=== PATIENT | female | born 1955 | race Hispanic/Latino ===

== ENCOUNTER 2022-10-01 14:39 | Emergency (ER) | payer OTHER ==
--- OUTSIDE RECORDS SUMMARY | 2022-10-01 14:46 | XMS REPORT | Continuity of Care Document ---
:[address] [facility] t Address [address] [place]. [address] [place] [id number] Care Team Providers Name Role Phone Burton Mazariegos Primary Care Physician Luana MARINO, Billie Umana Attending Clinician Burton Mazariegos Attending Clinician ANH CARDENAS Attending Clinician Unavailable Anh Cardenas MD Attending Clinician Doctor Unassigned, [place] Attending Clinician Unavailable Keenan Frausto Attending Clinician MACIEL CHO Attending Clinician Unavailable MACIEL CHO Attending Clinician Unavailable Tania Baker Attending Clinician Unavailable Jett Sarmiento DO Attending Clinician Maciel Cho DO Attending Clinician Lab, Adc Fam Pob I Attending Clinician Unavailable Angelina Cary Attending Clinician CITLALLI SWARTZ Attending Clinician Unavailable Michael Lin Attending Clinician RADIOLOGY Attending Clinician Unavailable Omaghomi TINNER HELPER, Omayemi Attending Clinician TRIP, YONATHAN Attending Clinician Unavailable Chato HANSON, Pilar Malcolm Attending Clinician Patricia Nickerson S Attending Clinician Gabriel Mckinnon MD Attending Clinician Yolanda Bianchi MD Attending Clinician Jose MARINO, Ambar Attending Clinician Provider, [facility] Attending Clinician Unavailable Cate TINNER HELPER, Gaudencio Attending Clinician GUADENCIO WRAY Attending Clinician Unavailable LOU DELGADILLO Attending Clinician Unavailable Physician, No Primary or Family Admitting Clinician Unavaillashawn Garcia MD, Ambar Admitting Clinician Payers Payer Name Policy Type Policy Number Effective Date Expiration Date [facility] [id number] 2020 PREFERRED GENERIC 00:00:00 [facility] [id number] 2019 00:00:00 [employer] TRS CARE [id number] 2014 00:00:00 Problems Condition Condition Condition Status Onset Resolution Last Treating Co mments Source Name Details Category Date Date Treatment Clinician Date Acute Acute Disease Active Methodi internal internal 05 [facility] 00:00: Ho spita t of left t of left 00 l knee knee COVID-19 COVID-19 Disease Active 2019-10 Unive rs 2-12 ity of 00:00: [place] [facility] Pneumonia Pneumonia Disease Active 2019-10 Uni vers 2-12 ity of 00:00: [place] 00 [facility] Obesity Obesity Disease Active Univers 2-17 ity of 00:00: [place] [facility] Tinnitus Tinnitus Disease Active Unive rs of right of right 2-17 ity of ear ear 00:00: [place] [facility] Cardiac Cardiac Disease Active Univers murmur murmur 2-17 ity of 00:00: [place] [facility] Diabetes Diabetes Disease Active 2013-10 Overview: Un rosario mellitus mellitus 0-22 Formattin ity of type 2, type 2, 00:00: g of this [place] uncontroll uncontroll 00 note Me dical ed, ed, might be Branch without without different complicati complicati from the ons ons original. 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 ICD10 Diagnosis Term [place] [employer] Pure Pure Disease Active Univers hyperglyce hyperglyce 8-22 it y of ridemia ridemia 00:00: [place] [facility] Allergies, Adverse Reactions, Alerts Allergy Allergy Status Severity Reaction(s) Onset Inactive Treating Comm ents Source Name Type Date Date Clinician Sulfa Propensi Active Rash 2015-10 Univers (Sulfona ty to 2-28 ity of mide adverse 00:00: [place] Antibiot reaction 00 Medica l ics) s Branch SULFA Drug Active Rash 2015-10 Univers (SULFONA Class 2-28 ity of MIDE 00:00: [place] ANTIBIOT 00 Medical ICS) Branch Sulfa Propensi Active Rash 2015-10 Univers (Sulfona ty to 2-28 ity of mide adverse 00:00: [place] Antibiot reaction 00 Medica l ics) s Branch Sulfa Propensi Active Rash 2015-10 Methodi (Sulfona ty to 2-28 st mide adverse 00:00: [facility]ospita Antibiot reaction 00 l ics) s to drug Family History Family Member Diagnosis Comments Start Date Stop Date Source Natural father Diabetes [facility] Natural father Cancer [facility] Natural mother Diabetes [facility] Social History Social Habit Start Date Stop Date Quantity Comments Source Tobacco use and 2022-04-13 2022-04-13 Smokeless [facility] 00:00:00 00:00:00 tobacco non-user Hospital Alcohol intake 2022-04-13 2022-04-13 Lifetime [facility] 00:00:00 00:00:00 non-drinker Hospital (finding) Exposure to 2022-03-28 2022-04-07 Not sure University SARS-CoV-2 (event) 00:00:00 13:11:00 [facility] [place] [facility] Cigarettes smoked 2020-11-20 2020-11-20 Univers ity of current (pack per 00:00:00 00:00:00 [facility] ) - Reported Branch History of tobacco 1980-10-10 Cigarette Smoker University of use 00:00:00 [facility] [place] [facility] Sex Ass[birth year] At [birth year] [facility] 00:[facility]:00 Hospital Smoking Status Start Date Stop Date Source Never smoked tobacco [facility] Former smoker 2020-11-20 00:00:00 2020-11-20 00:00:00 Universi ty [facility] Unknown if ever smoked [facility] Medications Ordered Filled Start Stop Current Ordering Indication Dosage Frequency Signature Comments Components Source Medication Medication Date Date Medication? Clinician (SIG) Name Name meloxicam 2021-10 Yes 15mg Q24H TAKE 1 Method i (MOBIC) 15 0-24 TABLET (15 st mg tablet 00:00: MG TOTAL) Hos yokasta 00 BY MOUTH l DAILY NEEDED (INFLAMMAT ION). meloxicam No 15mg Q24H TAKE 1 Metho di (MOBIC) 15 8-29 10-24 TABLET (15 st mg tablet 00:00: 00:00 MG TOTAL) Ho spita 00 :00 BY MOUTH l DAILY NEEDED (INFLAMMAT ION). meloxicam No 15mg Q24H Take 1 Metho di (MOBIC) 15 7-05 08-29 tablet (15 st mg tablet 00:00: 00:00 mg total) Ho spita 00 :00 by mouth l daily as needed (inflammat ion). ketorolac 2021- No [id number] 30mg U nivers (TORADOL) 04-07 ity of injection 19:30: 18:38 [place] 30 mg 00 :00 [facility] ketorolac 2021- No [id number] 30mg 30 mg, Univers (TORADOL) 04-07 Intramuscu ity of injection 19:30: 18:38 [place], ONCE, [place] 30 mg 00 :00 1 dose, On Medical Wed Branch 04/07/22 at 1430, Routine levothyroxi Yes 88ug Take 88 Uni vers ne 6-29 mcg by ity of (SYNTHROID) 13:22: mouth [place] 88 mcg 45 every Medical tablet morning. Branch levothyroxi Yes 88ug Take 88 Uni vers ne 6-29 mcg by ity of (SYNTHROID) 13:22: mouth [place] 88 mcg 45 every Medical tablet morning. Branch levothyroxi Yes 88ug Take 88 Uni vers ne 6-29 mcg by ity of (SYNTHROID) 13:22: mouth [place] 88 mcg 45 every Medical tablet morning. Branch levothyroxi Yes 88ug Take 88 Uni vers ne 6-29 mcg by ity of (SYNTHROID) 13:22: mouth [place] 88 mcg 45 every Medical tablet morning. Branch hydroCHLORO Yes 25mg Take 25 mg Univers thiazide 25 6-21 by mouth ity of mg tablet 00:00: every [place] 00 morning. Medical Branch hydroCHLORO 2021-0 Yes 25mg Take 25 mg Univers thiazide 25 6-21 by mouth ity of mg tablet 00:00: every [place] 00 morning. Medical Branch hydroCHLORO 2021-0 Yes 25mg Take 25 mg Univers thiazide 25 6-21 by mouth ity of mg tablet 00:00: every [place] 00 morning. Medical Branch hydroCHLORO 2021-0 Yes 25mg Take 25 mg Univers thiazide 25 6-21 by mouth ity of mg tablet 00:00: every [place] 00 morning. [facility] SERTraline 2021-0 Yes 25mg Take 25 mg U nivers 25 mg 5-17 by mouth ity of tablet 00:00: daily. [facility] OZEMPIC Yes INJECT Univers 0.25 mg or 5-17 0.5MG ONCE ity of 0.5 mg(2 00:00: WEEKLY [place] mg/1.5 mL) [facility] ical P[facility]j OUSLY [place] pantoprazol Yes 40mg Take 40 mg Univers e 40 mg EC 5-17 by mouth ity o f tablet 00:00: daily. [place] [facility] SERTraline Yes 25mg Take 25 mg U nivers 25 mg 5-17 by mouth ity of tablet 00:00: daily. [place] [facility] OZEMPIC Yes INJECT Univers 0.25 mg or 5-17 0.5MG ONCE ity of 0.5 mg(2 00:00: WEEKLY [place] mg/1.5 mL) [facility] Med ical PnIj OULY [place] pantoprazol Yes 40mg Take 40 mg Univers e 40 mg EC 5-17 by mouth ity o f tablet 00:00: daily. [place] [facility] SERTraline Yes 25mg Take 25 mg U nivers 25 mg 5-17 by mouth ity of tablet 00:00: daily. [place] [facility] OZEMPIC Yes INJECT Univers 0.25 mg or 5-17 0.5MG ONCE ity of 0.5 mg(2 00:00: WEEKLY [place] mg/1.5 mL) [facility] Yes 40mg Take 40 mg Univers e 40 mg EC 5-17 by mouth ity o f tablet 00:00: daily. [place] [facility] SERTraline Yes 25mg Take 25 mg U nivers 25 mg 5-17 by mouth ity of tablet 00:00: daily. [address] OZEMPIC Yes INJECT Univers 0.25 mg or 5-17 0.5MG ONCE ity of 0.5 mg(2 00:00: WEEKLY [place] mg/1.5 mL) SUBCUTANES Med ical PnIj OUSLY [place] pantoprazol Yes 40mg Take 40 mg Univers e 40 mg EC 5-17 by mouth ity o f tablet 00:00: daily. [address] methocarbam 2020-0 Yes [id number] 750mg Take 1 Univers oL 1-12 tablet by ity of (ROBAXIN-75 00:00: mouth 4 [place] as 0) 750 mg 00 (four) Medical tablet times Branch daily as needed for Pain (scale 7-10). ibuprofen 2020-0 Yes [id number] 600mg Take 1 Univers 600 mg 1-12 tablet by ity of tablet 00:00: mouth [place] 00 every 8 Medical (eight) Branch hours as needed for Pain (scale 4-6). methocarbam 2020-0 Yes [id number] 750mg Take 1 Univers oL 1-12 tablet by ity of (ROBAXIN-75 00:00: mouth 4 [place] as 0) 750 mg 00 (four) Medical tablet times Branch daily as needed for Pain (scale 7-10). ibuprofen 2020-0 Yes [id number] 600mg Take 1 Univers 600 mg 1-12 tablet by ity of tablet 00:00: mouth [place] 00 every 8 Medical (eight) Branch hours as needed for Pain (scale 4-6). methocarbam 2020-0 Yes [id number] 750mg Take 1 Univers oL 1-12 tablet by ity of (ROBAXIN-75 00:00: mouth 4 [place] as 0) 750 mg 00 (four) Medical tablet times Branch daily as needed for Pain (scale 7-10). ibuprofen 2020-0 Yes [id number] 600mg Take 1 Univers 600 mg 1-12 tablet by ity of tablet 00:00: mouth [place] 00 every 8 Medical (eight) Branch hours as needed for Pain (scale 4-6). methocarbam 2020-0 Yes [id number] 750mg Take 1 Univers oL 1-12 tablet by ity of (ROBAXIN-75 00:00: mouth 4 [place] as 0) 750 mg 00 (four) Medical tablet times Branch daily as needed for Pain (scale 7-10). ibuprofen 2020-0 Yes [id number] 600mg Take 1 Univers 600 mg 1-12 tablet by ity of tablet 00:00: mouth [place] 00 every 8 Medical (eight) Branch hours as needed for Pain (scale 4-6). methocarbam 2020-0 Yes [id number] 750mg Take 1 Univers oL 1-12 tablet by ity of (ROBAXIN-75 00:00: mouth 4 [place] as 0) 750 mg 00 (four) Medical tablet times Branch daily as needed for Pain (scale 7-10). ibuprofen 2020-0 Yes [id number] 600mg Take 1 Univers 600 mg 1-12 tablet by ity of tablet 00:00: mouth [place] 00 every 8 Medical (eight) Branch hours as needed for Pain (scale 4-6). methocarbam 2021-0 Yes [id number] 750mg Take 1 Univers oL 1-12 tablet by ity of (ROBAXIN-75 00:00: mouth 4 [place] as 0) 750 mg 00 (four) Medical tablet times Branch daily as needed for Pain (scale 7-10). ibuprofen 202-0 Yes [id number] 600mg Take 1 Univers 600 mg 1-12 tablet by ity of tablet 00:00: mouth [place] 00 every 8 Medical (eight) Branch hours as needed for Pain (scale 4-6). methocarbam 2021-0 Yes [id number] 750mg Take 1 Univers oL 1-12 tablet by ity of (ROBAXIN-75 00:00: mouth 4 [place] as 0) 750 mg 00 (four) Medical tablet times Branch daily as needed for Pain (scale 7-10). ibuprofen 2020-0 Yes [id number] 600mg Take 1 Univers 600 mg 1-12 tablet by ity of tablet 00:00: mouth [place] 00 every 8 Medical (eight) Branch hours as needed for Pain (scale 4-6). methocarbam 2021-0 Yes [id number] 750mg Take 1 Univers oL 1-12 tablet by ity of (ROBAXIN-75 00:00: mouth 4 [place] as 0) 750 mg 00 (four) Medical tablet times Branch daily as needed for Pain (scale 7-10). ibuprofen 2020-0 Yes [id number] 600mg Take 1 Univers 600 mg 1-12 tablet by ity of tablet 00:00: mouth [place] 00 every 8 Medical (eight) Branch hours as needed for Pain (scale 4-6). methocarbam 2021-0 Yes [id number] 750mg Take 1 Univers oL 1-12 tablet by ity of (ROBAXIN-75 00:00: mouth 4 [place] as 0) 750 mg 00 (four) Medical tablet times Branch daily as needed for Pain (scale 7-10). ibuprofen 2021-0 Yes [id number] 600mg Take 1 Univers 600 mg 1-12 tablet by ity of tablet 00:00: mouth [place] 00 every 8 Medical (eight) Branch hours as needed for Pain (scale 4-6). methocarbam 2020-0 Yes [id number] 750mg Take 1 Univers oL 1-12 tablet by ity of (ROBAXIN-75 00:00: mouth 4 [place] as 0) 750 mg 00 (four) Medical tablet times Branch daily as needed for Pain (scale 7-10). ibuprofen 2020-0 Yes [id number] 600mg Take 1 Univers 600 mg 1-12 tablet by ity of tablet 00:00: mouth [place] 00 every 8 Medical (eight) Branch hours as needed for Pain (scale 4-6). methocarbam 2020-0 Yes [id number] 750mg Take 1 Univers oL 1-12 tablet by ity of (ROBAXIN-75 00:00: mouth 4 [place] as 0) 750 mg 00 (four) Medical tablet times Branch daily as needed for Pain (scale 7-10). ibuprofen 2020-0 Yes [id number] 600mg Take 1 Univers 600 mg 1-12 tablet by ity of tablet 00:00: mouth [place] 00 every 8 Medical (eight) Branch hours as needed for Pain (scale 4-6). methocarbam 2020-0 Yes [id number] 750mg Take 1 Univers oL 1-12 tablet by ity of (ROBAXIN-75 00:00: mouth 4 [place] as 0) 750 mg 00 (four) Medical tablet times Branch daily as needed for Pain (scale 7-10). methocarbam 2020-0 Yes [id number] 750mg Take 1 Univers oL 1-12 tablet by ity of (ROBAXIN-75 00:00: mouth 4 [place] as 0) 750 mg 00 (four) Medical tablet times Branch daily as needed for Pain (scale 7-10). methocarbam 202-0 Yes [id number] 750mg Take 1 Univers oL 1-12 tablet by ity of (ROBAXIN-75 00:00: mouth 4 [place] as 0) 750 mg 00 (four) Medical tablet times Branch daily as needed for Pain (scale 7-10). methocarbam 2020-0 Yes [id number] 750mg Take 1 Univers oL 1-12 tablet by ity of (ROBAXIN-75 00:00: mouth 4 [place] as 0) 750 mg 00 (four) Medical tablet times Branch daily as needed for Pain (scale 7-10). ibuprofen 2021- No [id number] 600mg Take 1 Univers 600 mg 10-21- tablet by ity of tablet 00:00: 00:00 mouth [place] 00 :00 every 8 Medical (eight) Branch hours as needed for Pain (scale 4-6). esomeprazol 2019-10 Yes 40mg Take 40 mg Univers e (NEXIUM) 2-17 by mouth ity o f 40 mg 01:03: daily with [place] capsule 49 breakfast. Medica l Branch Insulin 2019-10 Yes 12U inject 12 Unive rs Detemir 2-17 Units ity of (LEVEMIR 01:03: under the [place] FLEXPEN) 49 skin. Medical 100 unit/mL Branch (3 mL) InPn levothyroxi 2019-10 Yes 88ug Take 88 Uni vers ne 2-17 mcg by ity of (SYNTHROID) 01:03: mouth [place] 88 mcg 49 every Medical tablet morning. Branch esomeprazol 2019-10 Yes 40mg Take 40 mg Univers e (NEXIUM) 2-17 by mouth ity o f 40 mg 01:03: daily with [place] capsule 49 breakfast. Medica l Branch Insulin 2019-10 Yes 12U inject 12 Unive rs Detemir 2-17 Units ity of (LEVEMIR 01:03: under the [place] FLEXPEN) 49 skin. Medical 100 unit/mL Branch (3 mL) InPn levothyroxi 2019-10 Yes 88ug Take 88 Uni vers ne 2-17 mcg by ity of (SYNTHROID) 01:03: mouth [place] 88 mcg 49 every Medical tablet morning. Branch esomeprazol 2019-10 Yes 40mg Take 40 mg Univers e (NEXIUM) 2-17 by mouth ity o f 40 mg 01:03: daily with [place] capsule 49 breakfast. Medica l Branch Insulin 2019-10 Yes 12U inject 12 Unive rs Detem[place] 2-17 Units ity of (LEVEMIR 01:03: under the [place] FLEXPEN) 49 skin. Medical 100 unit/mL Branch (3 mL) InPn levothyroxi 2019-10 Yes 88ug Take 88 Uni vers ne 2-17 mcg by ity of (SYNTHROID) 01:03: mouth [place] 88 mcg 49 every Medical tablet morning. Branch esomeprazol 2019-10 Yes 40mg Take 40 mg Univers e (NEXIUM) 2-17 by mouth ity o f 40 mg 01:03: daily with [place] capsule 49 breakfast. Medica l Branch Insulin 2019-10 Yes 12U inject 12 Unive rs Detemir 2-17 Units ity of (LEVEMIR 01:03: under the [place] FLEXPEN) 49 skin. Medical 100 unit/mL Branch (3 mL) InPn levothyroxi 2019-10 Yes 88ug Take 88 Uni vers ne 2-17 mcg by ity of (SYNTHROID) 01:03: mouth [place] 88 mcg 49 every Medical tablet morning. Branch esomeprazol 2019-10 Yes 40mg Take 40 mg Univers e (NEXIUM) 2-17 by mouth ity o f 40 mg 01:03: daily with [place] capsule 49 breakfast. Medica l Branch Insulin 2019-10 Yes 12U inject 12 Unive rs Detemir 2-17 Units ity of (LEVEMIR 01:03: under the [place] FLEXPEN) 49 skin. Medical 100 unit/mL Branch (3 mL) In levothyroxi 2019-10 Yes 88ug Take 88 Uni vers ne 2-17 mcg by ity of (SYNTHROID) 01:03: mouth [place] 88 mcg 49 every Medical tablet morning. Branch esomeprazol 2019-10 Yes 40mg Take 40 mg Univers e (NEXIUM) 2-17 by mouth ity o f 40 mg 01:03: daily with [place] capsule 49 breakfast. Medica l Branch Insulin 2019-10 Yes 12U inject 12 Unive rs Detemir 2-17 Units ity of (LEVEMIR 01:03: under the [place] FLEXPEN) 49 skin. Medical 100 unit/mL Branch (3 mL) In levothyroxi 2019-10 Yes 88ug Take 88 Uni vers ne 2-17 mcg by ity of (SYNTHROID) 01:03: mouth [place] 88 mcg 49 every Medical tablet morning. Branch esomeprazol 2019-10 Yes 40mg Take 40 mg Univers e (NEXIUM) 2-17 by mouth ity o f 40 mg 01:03: daily with [place] capsule 49 breakfast. Medica l Branch Insulin 2019-10 Yes 12U inject 12 Unive rs Detemir 2-17 Units ity of (LEVEMIR 01:03: under the [place] FLEXPEN) 49 skin. Medical 100 unit/mL Branch (3 mL) InPn levothyroxi 2019-10 Yes 88ug Take 88 Uni vers ne 2-17 mcg by ity of (SYNTHROID) 01:03: mouth [place] 88 mcg 49 every Medical tablet morning. Branch esomeprazol 2019-10 Yes 40mg Take 40 mg Univers e (NEXIUM) 2-17 by mouth ity o f 40 mg 01:03: daily with [place] capsule 49 breakfast. Medica l Branch Insulin 2019-10 Yes 12U inject 12 Unive rs Detemir 2-17 Units ity of (LEVEMIR 01:03: under the [place] FLEXPEN) 49 skin. Medical 100 unit/mL Branch (3 mL) InPn levothyroxi 2019-10 Yes 88ug Take 88 Uni vers ne 2-17 mcg by ity of (SYNTHROID) 01:03: mouth [place] 88 mcg 49 every Medical tablet morning. Branch esomeprazol 2019-10 Yes 40mg Take 40 mg Univers e (NEXIUM) 2-17 by mouth ity o f 40 mg 01:03: daily with [place] capsule 49 breakfast. Medica l Branch Insulin 2019-10 Yes 12U inject 12 Unive rs Detemir 2-17 Units ity of (LEVEMIR 01:03: under the [place] FLEXPEN) 49 skin. Medical 100 unit/mL Branch (3 mL) InPn levothyroxi 2019-10 Yes 88ug Take 88 Uni vers ne 2-17 mcg by ity of (SYNTHROID) 01:03: mouth [place] 88 mcg 49 every Medical tablet morning. Branch esomeprazol 2019-10 Yes 40mg Take 40 mg Univers e (NEXIUM) 2-17 by mouth ity o f 40 mg 01:03: daily with [place] capsule 49 breakfast. Medica l Branch Insulin 2019-10 Yes 12U inject 12 Unive rs Detemir 2-17 Units ity of (LEVEMIR 01:03: under the [place] FLEXPEN) 49 skin. Medical 100 unit/mL Branch (3 mL) InPn levothyroxi 2019-10 Yes 88ug Take 88 Uni vers ne 2-17 mcg by ity of (SYNTHROID) 01:03: mouth [place] 88 mcg 49 every Medical tablet morning. Branch esomeprazol 2019-10 Yes 40mg Take 40 mg Univers e (NEXIUM) 2-17 by mouth ity o f 40 mg 01:03: daily with [place] capsule 49 breakfast. Medica l Branch Insulin 2019-10 Yes 12U inject 12 Unive rs Detemir 2-17 Units ity of (LEVEMIR 01:03: under the [place] FLEXPEN) 49 skin. Medical 100 unit/mL Branch (3 mL) InPn levothyroxi 2019-10 Yes 88ug Take 88 Uni vers ne 2-17 mcg by ity of (SYNTHROID) 01:03: mouth [place] 88 mcg 49 every Medical tablet morning. Branch esomeprazol 2019-10 Yes 40mg Take 40 mg Univers e (NEXIUM) 2-17 by mouth ity o f 40 mg 01:03: daily with [place] capsule 49 breakfast. Medica l Branch Insulin 2019-10 Yes 12U inject 12 Unive rs Detemir 2-17 Units ity of (LEVEMIR 01:03: under the [place] FLEXPEN) 49 skin. Medical 100 unit/mL Branch (3 mL) InPn levothyroxi 2019-10 Yes 88ug Take 88 Uni vers ne 2-17 mcg by ity of (SYNTHROID) 01:03: mouth [place] 88 mcg 49 every Medical tablet morning. Branch esomeprazol 2019-10 Yes 40mg Take 40 mg Univers e (NEXIUM) 2-17 by mouth ity o f 40 mg 01:03: daily with [place] capsule 49 breakfast. Medica l Branch Insulin 2019-10 Yes 12U inject 12 Unive rs Detemir 2-17 Units ity of (LEVEMIR 01:03: under the [place] FLEXPEN) 49 skin. Medical 100 unit/mL Branch (3 mL) InPn levothyroxi 2019-10 Yes 88ug Take 88 Uni vers ne 2-17 mcg by ity of (SYNTHROID) 01:03: mouth [place] 88 mcg 49 every Medical tablet morning. Branch flu vaccine 2019-10 2020- No .7mL 0.7 mL, Un rosario 64 yrs and 2-16 12-16 Intramuscu it y of up(PF) 21:45: 21:45 [place], ONCE, [place] (FLUZONE 00 :00 1 dose, Medical HIGHDOSE Wed Branch QUAD 20-09/24/20 PF) syringe at 1545, 0.7 mL Routine Insulin 2019-10 Yes 12U inject 12 Unive rs Detemir 2-16 Units ity of (LEVEMIR 19:03: under the [place] FLEXPEN) 49 skin. Medical 100 unit/mL Branch (3 mL) InPn levothyroxi 2019-10 Yes 88ug Take 88 Uni vers ne 2-16 mcg by ity of (SYNTHROID) 19:03: mouth [place] 88 mcg 49 every Medical tablet morning. Branch esomeprazol 2019-10 Yes 40mg Take 40 mg Univers e (NEXIUM) 2-16 by mouth ity o f 40 mg 19:03: daily with [place] capsule 49 breakfast. Medica l Branch Insulin 2019-10 Yes 12U inject 12 Unive rs Detemir 2-16 Units ity of (LEVEMIR 19:03: under the [place] FLEXPEN) 49 skin. Medical 100 unit/mL Branch (3 mL) InPn esomeprazol 2019-10 Yes 40mg Take 40 mg Univers e (NEXIUM) 2-16 by mouth ity o f 40 mg 19:03: daily with [place] capsule 49 breakfast. Medica l Branch Insulin 2019-10 Yes 12U inject 12 Unive rs Detemir 2-16 Units ity of (LEVEMIR 19:03: under the [place] FLEXPEN) 49 skin. Medical 100 unit/mL Branch (3 mL) InPn esomeprazol 2019-10 Yes 40mg Take 40 mg Univers e (NEXIUM) 2-16 by mouth ity o f 40 mg 19:03: daily with [place] capsule 49 breakfast. Medica l Branch Insulin 2019-10 Yes 12U inject 12 Unive rs Detemir 2-16 Units ity of (LEVEMIR 19:03: under the [place] FLEXPEN) 49 skin. Medical 100 unit/mL Branch (3 mL) InPn esomeprazol 2019-10 Yes 40mg Take 40 mg Univers e (NEXIUM) 2-16 by mouth ity o f 40 mg 19:03: daily with [place] capsule 49 breakfast. Medica l Branch Insulin 2019-10 Yes 12U inject 12 Unive rs Detemir 2-16 Units ity of (LEVEMIR 19:03: under the [place] FLEXPEN) 49 skin. Medical 100 unit/mL Branch (3 mL) InPn esomeprazol 2019-10 Yes 40mg Take 40 mg Univers e (NEXIUM) 2-16 by mouth ity o f 40 mg 19:03: daily with [place] capsule 49 breakfast. Medica l Branch albuterol 2019-10 Yes [id number] 2{puff} Inhale 2 Univers 90 2-16 [id number] Puffs ity of mcg/actuati 00:00: every 6 [place] as on inhaler 00 (six) Medical hours as Branch needed for Wheezing, Shortness of Breath, Bronchospa sm or Chest tightness. albuterol 2019-10 Yes [id number] 2{puff} Inhale 2 Univers 90 2-16 [id number] Puffs ity of mcg/actuati 00:00: every 6 [place] as on inhaler 00 (six) Medical hours as Branch needed for Wheezing, Shortness of Breath, Bronchospa sm or Chest tightness. albuterol 2019-10 Yes [id number] 2{puff} Inhale 2 Univers 90 2-16 [id number] Puffs ity of mcg/actuati 00:00: every 6 [place] as on inhaler 00 (six) Medical hours as Branch needed for Wheezing, Shortness of Breath, Bronchospa sm or Chest tightness. albuterol 2019-10 Yes [id number] 2{puff} Inhale 2 Univers 90 2-16 [id number] Puffs ity of mcg/actuati 00:00: every 6 [place] as on inhaler 00 (six) Medical hours as Branch needed for Wheezing, Shortness of Breath, Bronchospa sm or Chest tightness. albuterol 2019-10 Yes [id number] 2{puff} Inhale 2 Univers 90 2-16 [id number] Puffs ity of mcg/actuati 00:00: every 6 [place] as on inhaler 00 (six) Medical hours as Branch needed for Wheezing, Shortness of Breath, Bronchospa sm or Chest tightness. albuterol 2019-10 Yes [id number] 2{puff} Inhale 2 [facility] 90 2-16 [id number] Puffs ity of mcg/actuati 00:00: every 6 [place] as on inhaler 00 (six) Medical hours as Branch needed for Wheezing, Shortness of Breath, Bronchospa sm or Chest tightness. albuterol 2019-10 Yes [id number] 2{puff} Inhale 2 [facility] 90 2-16 [id number] Puffs ity of mcg/actuati 00:00: every 6 [place] as on inhaler 00 (six) Medical hours as Branch needed for Wheezing, Shortness of Breath, Bronchospa sm or Chest tightness. albuterol 2019-10 Yes [id number] 2{puff} Inhale 2 [facility] 90 2-16 [id number] Puffs ity of mcg/actuati 00:00: every 6 [place] as on inhaler 00 (six) Medical hours as Branch needed for Wheezing, Shortness of Breath, Bronchospa sm or Chest tightness. albuterol 2019-10 Yes [id number] 2{puff} Inhale 2 [facility] 90 2-16 [id number] Puffs ity of mcg/actuati 00:00: every 6 [place] as on inhaler 00 (six) Medical hours as Branch needed for Wheezing, Shortness of Breath, Bronchospa sm or Chest tightness. albuterol 2019-10 Yes [id number] 2{puff} Inhale 2 [facility] 90 2-16 [id number] Puffs ity of mcg/actuati 00:00: every 6 [place] as on inhaler 00 (six) Medical hours as Branch needed for Wheezing, Shortness of Breath, Bronchospa sm or Chest tightness. albuterol 2019-10 Yes [id number] 2{puff} Inhale 2 [facility] 90 2-16 [id number] Puffs ity of mcg/actuati 00:00: every 6 [place] as on inhaler 00 (six) Medical hours as Branch needed for Wheezing, Shortness of Breath, Bronchospa sm or Chest tightness. albuterol 2019-10 Yes [id number] 2{puff} Inhale 2 [facility] 90 2-16 [id number] Puffs ity of mcg/actuati 00:00: every 6 [place] as on inhaler 00 (six) Medical hours as Branch needed for Wheezing, Shortness of Breath, Bronchospa sm or Chest tightness. albuterol 2019-10 Yes [id number] 2{puff} Inhale 2 [facility] 90 2-16 [id number] Puffs ity of mcg/actuati 00:00: every 6 [place] as on inhaler 00 (six) Medical hours as Branch needed for Wheezing, Shortness of Breath, Bronchospa sm or Chest tightness. albuterol 2019-10 Yes [id number] 2{puff} Inhale 2 [facility] 90 2-16 [id number] Puffs ity of mcg/actuati 00:00: every 6 [place] as on inhaler 00 (six) Medical hours as Branch needed for Wheezing, Shortness of Breath, Bronchospa sm or Chest tightness. albuterol 2019-10 Yes [id number] 2{puff} Inhale 2 [facility] 90 2-16 [id number] Puffs ity of mcg/actuati 00:00: every 6 [place] as on inhaler 00 (six) Medical hours as Branch needed for Wheezing, Shortness of Breath, Bronchospa sm or Chest tightness. albuterol 2019-10 Yes [id number] 2{puff} Inhale 2 [facility] 90 2-16 [id number] Puffs ity of mcg/actuati 00:00: every 6 [place] as on inhaler 00 (six) Medical hours as Branch needed for Wheezing, Shortness of Breath, Bronchospa sm or Chest tightness. albuterol 2019-10 Yes [id number] 2{puff} Inhale 2 [facility] 90 2-16 [id number] Puffs ity of mcg/actuati 00:00: every 6 [place] as on inhaler 00 (six) Medical hours as Branch needed for Wheezing, Shortness of Breath, Bronchospa sm or Chest tightness. albuterol 2019-10 Yes [id number] 2{puff} Inhale 2 [facility] 90 2-16 [id number] Puffs ity of mcg/actuati 00:00: every 6 [place] as on inhaler 00 (six) Medical hours as Branch needed for Wheezing, Shortness of Breath, Bronchospa sm or Chest tightness. codeine-gua 2019-10 Yes 5mL 5 mL, Unive rs ifenesin 2-14 Oral, Q6H, ity o f (ROBITUSSIN 18:00: First dose [place] AC) 10-100 00 on Mon Medical mg/5 mL 09/22/20 Branch solution 5 at 1200, mL Until Discontinu ed, Routine insulin 2019-10 Yes .2U/kg/ 15 Units Uni vers glargine 2-14 d (rounded ity of (LANTUS 03:00: [place] 14.52 [place] U-100) 00 Units = Medical injection 0.2 Branch 15 Units Units/kg/d ay ?72.6 kg), Subcutaneo us, QHS, First dose on [place] 09/21/20 at 2100, Until Discontinu ed, Routine glucagon 2019-10 Yes 1mg 1 mg, Univers (GLUCAGEN 2-14 Intramuscu ity of DIAGNOSTIC 02:15: [place], PRN, [place] KIT) 48 Starting Medical injection 1 Sun Branch mg 09/21/20 at 2014, Until Discontinu ed, JENNIFER, Blood Glucose < or = 70 mg/dL and patient is unable to swallow or has mental changes. dextrose 50 2019-10 Yes 25mL 25 mL, Univ ers % in water 2-14 Slow IV ity of (D50W) 02:15: Push, PRN, [place] injection 48 Starting Medica l 25 mL [facility] 09/21/20 at 2014, Until Discontinu ed, JENNIFER, Blood Glucose < or = 70 mg/dL and patient is unable to swallow or has mental status changes. enoxaparin 2019-10 Yes 40mg 40 mg, Unive rs (LOVENOX) 2-12 Subcutaneo ity of injection 23:00: [place], DAILY, [place] 40 mg 00 First dose Medical on [facility] Branch 09/20/20 at 1700, Until Discontinu ed, Routine Sliding 2019-10 Yes Subcutaneo Univ ers Scale 2-12 us, Q6H, ity of Insulin-Reg 18:00: First dose [place] ular + Fsbg 00 on [facility] Medica l Testing 09/20/20 Branch at 1200, Until Discontinu ed, Routine levothyroxi 2019-10 Yes 88ug 88 mcg, Uni vers ne 2-12 Oral, ity of (SYNTHROID) 12:00: QAM-0600, [place] tablet 88 00 First dose Medi nakul mcg on Sat Branch 09/20/20 at 0600, Until Discontinu ed, Routine guaiFENesin 2019-10 2020- No 200mg 200 mg, U nivers (FENESIN 2-12 -14 Oral, ity of IR) tablet 11:20: 14:02 Q4HPRN, [place] as 200 mg 34 :41 Starting Medical Sat Branch 09/20/20 at 0520, Until 09/22/20 at 0802, Routine, Cough albuterol 2019-10 Yes 2{puff} 2 Puff, [facility] [place] (VENTOLIN) 2-12 Inhalation ity of inhaler 2 11:20: , Q6HPRN, [place] as Puff 32 Starting Medical Sat Branch 09/20/20 at 0520, Until Discontinu ed, Routine, Wheezing, Shortness of Breath, Bronchospa sm, Chest tightness< br>Is this order for a patient with suspected or confirmed COVID-19 infection? Yes acetaminoph 2019-10 Yes 650mg 650 mg, [facility] [place] en 2-12 Oral, ity of (TYLENOL) 11:20: Q6HPRN, [place] tablet 650 28 Starting Medic al mg Sat Branch 09/20/20 at 0520, Until Discontinu ed, Routine, Temp > 38.5 C Insulin 2019- Yes 12U inject 12 Unive rs Detemir 2-08 Units ity of (LEVEMIR 22:08: [place] FLEXPEN[place] 53 skin. Medical 100 unit/mL Branch (3 mL) InPn levothyroxi 2019-10 Yes 88ug Take 88 Uni vers ne 2-08 mcg by ity of (SYNTHROID) 22:08: mouth [place] 88 mcg 53 every Medical tablet morning. Branch esomeprazol 2019-10 Yes 40mg Take 40 mg Univers e (NEXIUM) 2-08 by mouth ity o f 40 mg 22:08: daily with [place] capsule 53 breakfast. Medica l Branch bromphenira 2019-10 2020- No [id number] 5mL Take 5 mL Univers mine-pseudo 11-17 by mouth 4 i ty of ephedrine-D 00:00: 05:59 (four) [place] as M (BROMFED 00 :00 times Medical DM) 2-30-10 daily as Bran ch mg/5 mL needed for syrup Cough for up to 10 days. bromphenira 2019-10 2020- No [id number] 5mL Take 5 mL [facility] mine-pseudo 11-17 by mouth 4 i ty of ephedrine-D 00:00: 05:59 (four) [place] as M (BROMFED 00 :00 times Medical DM) 2-30-10 daily as Bran ch mg/5 mL needed for syrup Cough for up to 10 days. bromphenira 2019-10 2020- No [id number] 5mL Take 5 mL [facility] mine-pseudo 11-17-19 by mouth 4 i ty of ephedrine-D 00:00: 05:59 (four) [place] as M (BROMFED 00 :00 times Medical DM) 2-30-10 daily as Bran ch mg/5 mL needed for syrup Cough for up to 10 days. glipiZIDE 2020- Yes 10mg Take 10 mg [facility] [place] 10 mg 0-31 by mouth 2 ity of tablet 00:00: (two) 00 times Medical daily. Branch gabapentin 2020- Yes 100mg Take 100 [place] 100 mg 0-31 mg by ity of capsule 00:00: mouth 2 (two) Medical times Branch daily. glipiZIDE 2020-1 Yes 10mg Take 10 mg [place] 10 mg 0-31 by mouth 2 ity of tablet 00:00: (two) times Medical daily. Branch gabapentin 2020- Yes 100mg Take 100 [place] 100 mg 0-31 mg by ity of capsule 00:00: mouth 2 (two) Medical times Branch daily. glipiZIDE 2020- Yes 10mg Take 10 mg [place] 10 mg 0-31 by mouth 2 ity of tablet 00:00: (two) 00 times Medical daily. Branch gabapentin 2020- Yes 100mg Take 100 [place] 100 mg 0-31 mg by ity of capsule 00:00: mouth 2 (two) Medical times Branch daily. glipiZIDE 2020- Yes 10mg Take 10 mg [place] 10 mg 0-31 by mouth 2 ity of tablet 00:00: (two) 00 times Medical daily. Branch gabapentin 2020- Yes 100mg Take 100 [place] 100 mg 0-31 mg by ity of capsule 00:00: mouth 2 (two) Medical times Branch daily. glipiZIDE 2020-1 Yes 10mg Take 10 mg [place] 10 mg 0-31 by mouth 2 ity of tablet 00:00: (two) 00 times Medical daily. Branch gabapentin 2020-1 Yes 100mg Take 100 [place] 100 mg 0-31 mg by ity of capsule 00:00: mouth 2 (two) Medical times Branch daily. glipiZIDE 2020-1 Yes 10mg Take 10 mg [place] 10 mg 0-31 by mouth 2 ity of tablet 00:00: (two) 00 times Medical daily. Branch gabapentin 2020-1 Yes 100mg Take 100 [place] 100 mg 0-31 mg by ity of capsule 00:00: mouth 2 (two) Medical times Branch daily. glipiZIDE 2020-1 Yes 10mg Take 10 mg [place] 10 mg 0-31 by mouth 2 ity of tablet 00:00: (two) 00 times Medical daily. Branch gabapentin 2020-1 Yes 100mg Take 100 [place] 100 mg 0-31 mg by ity of capsule 00:00: mouth 2 (two) Medical times Branch daily. glipiZIDE 2020-1 Yes 10mg Take 10 mg [place] 10 mg 0-31 by mouth 2 ity of tablet 00:00: (two) 00 times Medical daily. Branch gabapentin 2020-1 Yes 100mg Take 100 [place] 100 mg 0-31 mg by ity of capsule 00:00: mouth 2 (two) Medical times Branch daily. glipiZIDE 2020-1 Yes 10mg Take 10 mg [place] 10 mg 0-31 by mouth 2 ity of tablet 00:00: (two) 00 times Medical daily. Branch gabapentin 2020-1 Yes 100mg Take 100 [place] 100 mg 0-31 mg by ity of capsule 00:00: mouth 2 (two) Medical times Branch daily. glipiZIDE 2020-1 Yes 10mg Take 10 mg [place] 10 mg 0-31 by mouth 2 ity of tablet 00:00: (two) 00 times Medical daily. Branch gabapentin 2020-1 Yes 100mg Take 100 [place] 100 mg 0-31 mg by ity of capsule 00:00: mouth 2 (two) Medical times Branch daily. glipiZIDE 2020-1 Yes 10mg Take 10 mg [place] 10 mg 0-31 by mouth 2 ity of tablet 00:00: (two) 00 times Medical daily. Branch gabapentin 2020-1 Yes 100mg Take 100 [place] 100 mg 0-31 mg by ity of capsule 00:00: mouth 2 (two) Medical times Branch daily. glipiZIDE 2020-1 Yes 10mg Take 10 mg [place] 10 mg 0-31 by mouth 2 ity of tablet 00:00: (two) [place] 00 times Medical daily. Branch gabapentin 2020-1 Yes 100mg Take 100 Un [place] 100 mg 0-31 mg by ity of capsule 00:00: mouth 2 (two) Medical times Branch daily. glipiZIDE 2020-1 Yes 10mg Take 10 mg [place] 10 mg 0-31 by mouth 2 ity of tablet 00:00: (two) 00 times Medical daily. Branch gabapentin 2020-1 Yes 100mg Take 100 [place] 100 mg 0-31 mg by ity of capsule 00:00: mouth 2 00 (two) Medical times Branch daily. glipiZIDE 2020-1 Yes 10mg Take 10 mg [place] 10 mg 0-31 by mouth 2 ity of tablet 00:00: (two) 00 times Medical daily. Branch gabapentin 2020-1 Yes 100mg Take 100 [place] 100 mg 0-31 mg by ity of capsule 00:00: mouth 2 (two) Medical times Branch daily. glipiZIDE 2020-1 Yes 10mg Take 10 mg [place] 10 mg 0-31 by mouth 2 ity of tablet 00:00: (two) 00 times Medical daily. Branch gabapentin 2020-1 Yes 100mg Take 100 [place] 100 mg 0-31 mg by ity of capsule 00:00: mouth 2 (two) Medical times Branch daily. glipiZIDE 2020-1 Yes 10mg Take 10 mg [place] 10 mg 0-31 by mouth 2 ity of tablet 00:00: (two) 00 times Medical daily. Branch gabapentin 2020-1 Yes 100mg Take 100 [place] 100 mg 0-31 mg by ity of capsule 00:00: mouth 2 00 (two) Medical times Branch daily. glipiZIDE 2020-1 Yes 10mg Take 10 mg [place] 10 mg 0-31 by mouth 2 ity of tablet 00:00: (two) 00 times Medical daily. Branch gabapentin 2020-1 Yes 100mg Take 100 [place] 100 mg 0-31 mg by ity of capsule 00:00: mouth 2 (two) Medical times Branch daily. glipiZIDE 2020-1 Yes 10mg Take 10 mg [place] 10 mg 0-31 by mouth 2 ity of tablet 00:00: (two) [place] 00 times Medical daily. Branch gabapentin 2020-1 Yes 100mg Take 100 Un [place] 100 mg 0-31 mg by ity of capsule 00:00: mouth 2 00 (two) Medical times Branch daily. glipiZIDE 2019-10 Yes 10mg Take 10 mg [place] 10 mg 0-31 by mouth 2 ity of tablet 00:00: (two) [place] 00 times Medical daily. Branch gabapentin 2019-10 Yes 100mg Take 100 [place] 100 mg 0-31 mg by ity of capsule 00:00: mouth 2 00 (two) Medical times Branch daily. cyclobenzap 2015-10 Yes 5mg Take 1 Univ ers rine 5 mg 2-28 tablet by ity o f tablet 00:00: mouth 3 (three) Medical times Branch daily. cyclobenzap 2015-10 Yes 5mg Take 1 Univ ers rine 5 mg 2-28 tablet by ity o f tablet 00:00: mouth 3 (three) Medical times Branch daily. cyclobenzap 2015-10 Yes 5mg Take 1 Univ ers rine 5 mg 2-28 tablet by ity o f tablet 00:00: mouth 3 (three) Medical times Branch daily. cyclobenzap 2015-10 Yes 5mg Take 1 Univ ers rine 5 mg 2-28 tablet by ity o f tablet 00:00: mouth 3 (three) Medical times Branch daily. cyclobenzap 2015-10 Yes 5mg Take 1 Univ ers rine 5 mg 2-28 tablet by ity o f tablet 00:00: mouth 3 (three) Medical times Branch daily. cyclobenzap 2015-10 Yes 5mg Take 1 Univ ers rine 5 mg 2-28 tablet by ity o f tablet 00:00: mouth 3 (three) Medical times Branch daily. cyclobenzap 2015-10 Yes 5mg Take 1 Univ ers rine 5 mg 2-28 tablet by ity o f tablet 00:00: mouth 3 (three) Medical times Branch daily. cyclobenzap 2015-10 Yes 5mg Take 1 Univ ers rine 5 mg 2-28 tablet by ity o f tablet 00:00: mouth 3 (three) Medical times Branch daily. cyclobenzap 2015-10 Yes 5mg Take 1 Univ ers rine 5 mg 2-28 tablet by ity o f tablet 00:00: mouth 3 (three) Medical times Branch daily. cyclobenzap 2015-10 Yes 5mg Take 1 Univ ers rine 5 mg 2-28 tablet by ity o f tablet 00:00: mouth 3 00 (three) Medical times Branch daily. cyclobenzap 2015-10 Yes 5mg Take 1 Univ ers rine 5 mg 2-28 tablet by ity o f tablet 00:00: mouth 3 00 (three) Medical times Branch daily. cyclobenzap 2015-10 Yes 5mg Take 1 Univ ers rine 5 mg 2-28 tablet by ity o f tablet 00:00: mouth 3 00 (three) Medical times Branch daily. cyclobenzap 2015-10 Yes 5mg Take 1 Univ ers rine 5 mg 2-28 tablet by ity o f tablet 00:00: mouth 3 00 (three) Medical times Branch daily. cyclobenzap 2015-10 Yes 5mg Take 1 Univ ers rine 5 mg 2-28 tablet by ity o f tablet 00:00: mouth 3 00 (three) Medical times Branch daily. cyclobenzap 2015-10 Yes 5mg Take 1 Univ ers rine 5 mg 2-28 tablet by ity o f tablet 00:00: mouth 3 (three) Medical times Branch daily. cyclobenzap 2015-10 Yes 5mg Take 1 Univ ers rine 5 mg 2-28 tablet by ity o f tablet 00:00: mouth 3 (three) Medical times Branch daily. traMADOL 2015-10 Yes 50mg Take 1 Univers (ULTRAM) 50 2-28 tablet by ity of mg tablet 00:00: mouth [place] 00 every 6 Medical (six) Branch hours as needed for Pain (scale 4-6). Chandra Griffin PA-C / Aquilino Ness MD TIMOTHY# [id number] [facility]# [id number] x Lic.# [id number] NPI# [id number] cyclobenzap 2015-10 Yes 5mg Take 1 Univ ers rine 5 mg 2-28 tablet by ity o f tablet 00:00: mouth 3 00 (three) Medical times Branch daily. cyclobenzap 2015-10 Yes 5mg Take 1 Univ ers rine 5 mg 2-28 tablet by ity o f tablet 00:00: mouth 3 00 (three) Medical times Branch daily. cyclobenzap 2015-10 Yes 5mg Take 1 Univ ers rine 5 mg 2-28 tablet by ity o f tablet 00:00: mouth 3 [place] 00 (three) Medical times Branch daily. cyclobenzap 2015-10 Yes 5mg Take 1 Univ ers rine 5 mg 2-28 tablet by ity o f tablet 00:00: mouth 3 [place] 00 (three) Medical times Branch daily. traMADOL 2015-10 Yes 50mg Take 1 Univers (ULTRAM) 50 2-28 tablet by ity of mg tablet 00:00: mouth [place] 00 every 6 Medical (six) Branch hours as needed for Pain (scale 4-6). Chandra Griffin PA-C / Aquilino Ness MD TIMOTHY# [id number] DPS# [id number] x Lic.# [id number] NPI# [id number] cyclobenzap 2015-10 Yes 5mg Take 1 Univ ers rine 5 mg 2-28 tablet by ity o f tablet 00:00: mouth 3 [place] 00 (three) Medical times Branch daily. traMADOL 2015-10 Yes 50mg Take 1 Univers (ULTRAM) 50 2-28 tablet by ity of mg tablet 00:00: mouth [place] 00 every 6 Medical (six) Branch hours as needed for Pain (scale 4-6). Chandra Griffin PA-C / Aquilino Ness MD TIMOTHY# [id number] DPS# [id number] x Lic.# [id number] NPI# [id number] traMADOL 2015-10 2020- No 50mg Take 1 Univer s (ULTRAM) 50 2-28 12-16 tablet by it y of mg tablet 00:00: 00:00 mouth [place] 00 :00 every 6 Medical (six) Branch hours as needed for Pain (scale 4-6). Chandra Griffin PA-C / Aquilino Ness MD TIMOTHY# [id number] DPS# [id number] x Lic.# [id number] NPI# [id number] esomeprazol 2014-0 Yes 40mg Take 40 mg Univers e (NEXIUM) 2-17 by mouth ity o f 40 mg 15:51: daily with [place] capsule 57 breakfast. Medica l Branch esomeprazol 2014-0 Yes 40mg Take 40 mg Univers e (NEXIUM) 2-17 by mouth ity o f 40 mg 15:51: daily with [place] capsule 57 breakfast. Medica l Branch exenatide Yes [id number] 2mg inject 2 Univers microsphere 2-17 mg under ity of s 00:00: the [facility]) 00 weekly. Medica l 2 mg/0.65 Branch mL PnIj metFORMIN Yes [id number] 1000mg Take 1 Tab Univers (GLUCOPHAGE 2-17 by mouth 2 it y of ) 1,000 mg 00:00: (two) [place] tablet 00 times Medical daily with Branch meals. exenatide Yes [id number] 2mg inject 2 Univers microsphere 2-17 mg under ity of s 00:00: the [facility]) 00 weekly. Medica l 2 mg/0.65 Branch mL PnIj metFORMIN Yes [id number] 1000mg Take 1 Tab Univers (GLUCOPHAGE 2-17 by mouth 2 it y of ) 1,000 mg 00:00: (two) [place] tablet 00 times Medical daily with Branch meals. exenatide Yes [id number] 2mg inject 2 [facility] microsphere 2-17 mg under ity of s 00:00: the [facility]) 00 weekly. Medica l 2 mg/0.65 Branch mL PnIj metFORMIN Yes [id number] 1000mg Take 1 Tab Univers (GLUCOPHAGE 2-17 by mouth 2 it y of ) 1,000 mg 00:00: (two) [place] tablet 00 times Medical daily with Branch meals. exenatide Yes [id number] 2mg inject 2 Univers microsphere 2-17 mg under ity of s 00:00: the [facility]) 00 weekly. Medica l 2 mg/0.65 Branch mL PnIj metFORMIN Yes [id number] 1000mg Take 1 Tab Univers (GLUCOPHAGE 2-17 by mouth 2 it y of ) 1,000 mg 00:00: (two) [place] tablet 00 times Medical daily with Branch meals. exenatide Yes [id number] 2mg inject 2 Univers microsphere 2-17 mg under ity of s 00:00: the [facility]) 00 weekly. Medica l 2 mg/0.65 Branch mL PnIj metFORMIN Yes [id number] 1000mg Take 1 Tab Univers (GLUCOPHAGE 2-17 by mouth 2 it y of ) 1,000 mg 00:00: (two) [place] tablet 00 times Medical daily with Branch meals. exenatide 0 Yes [id number] 2mg inject 2 Univers microsphere 2-17 mg under ity of s 00:00: the [facility]) 00 weekly. Medica l 2 mg/0.65 Branch mL PnIj metFORMIN Yes [id number] 1000mg Take 1 Tab Univers (GLUCOPHAGE 2-17 by mouth 2 it y of ) 1,000 mg 00:00: (two) [place] tablet 00 times Medical daily with Branch meals. exenatide 0 Yes [id number] 2mg inject 2 Univers microsphere 2-17 mg under ity of s 00:00: the [facility]) 00 weekly. Medica l 2 mg/0.65 Branch mL PnIj metFORMIN Yes [id number] 1000mg Take 1 Tab Univers (GLUCOPHAGE 2-17 by mouth 2 it y of ) 1,000 mg 00:00: (two) [place] tablet 00 times Medical daily with Branch meals. exenatide Yes [id number] 2mg inject 2 Univers microsphere 2-17 mg under ity of s 00:00: the [facility]) 00 weekly. Medica l 2 mg/0.65 Branch mL PnIj metFORMIN Yes [id number] 1000mg Take 1 Tab Univers (GLUCOPHAGE 2-17 by mouth 2 it y of ) 1,000 mg 00:00: (two) [place] tablet 00 times Medical daily with Branch meals. exenatide 0 Yes [id number] 2mg inject 2 Univers microsphere 2-17 mg under ity of s 00:00: the [facility]) 00 weekly. Medica l 2 mg/0.65 Branch mL PnIj metFORMIN Yes [id number] 1000mg Take 1 Tab Univers (GLUCOPHAGE 2-17 by mouth 2 it y of ) 1,000 mg 00:00: (two) [place] tablet 00 times Medical daily with Branch meals. exenatide 0 Yes [id number] 2mg inject 2 Univers microsphere 2-17 mg under ity of s 00:00: the [facility]) 00 weekly. Medica l 2 mg/0.65 Branch mL PnIj metFORMIN Yes [id number] 1000mg Take 1 Tab Univers (GLUCOPHAGE 2-17 by mouth 2 it y of ) 1,000 mg 00:00: (two) [place] tablet 00 times Medical daily with Branch meals. exenatide 0 Yes [id number] 2mg inject 2 Univers microsphere 2-17 mg under ity of s 00:00: the [facility] 00 weekly. Medica l 2 mg/0.65 Branch mL PnIj metFORMIN Yes [id number] 1000mg Take 1 Tab Univers (GLUCOPHAGE 2-17 by mouth 2 it y of ) 1,000 mg 00:00: (two) [place] tablet 00 times Medical daily with Branch meals. exenatide Yes [id number] 2mg inject 2 Univers microsphere 2-17 mg under ity of s 00:00: the [facility] ([facility]) 00 weekly. Medica l 2 mg/0.65 Branch mL PnIj metFORMIN Yes [id number] 1000mg Take 1 Tab Univers (GLUCOPHAGE 2-17 by mouth 2 it y of ) 1,000 mg 00:00: (two) [place] tablet 00 times Medical daily with Branch meals. exenatide Yes [id number] 2mg inject 2 Univers microsphere 2-17 mg under ity of s 00:00: the [facility] ([facility]) 00 weekly. Medica l 2 mg/0.65 Branch mL PnIj metFORMIN Yes [id number] 1000mg Take 1 Tab Univers (GLUCOPHAGE 2-17 by mouth 2 it y of ) 1,000 mg 00:00: (two) [place] tablet 00 times Medical daily with Branch meals. exenatide 0 Yes [id number] 2mg inject 2 Univers microsphere 2-17 mg under ity of s 00:00: the [facility] 00 weekly. Medica l 2 mg/0.65 Branch mL PnIj metFORMIN Yes [id number] 1000mg Take 1 Tab Univers (GLUCOPHAGE 2-17 by mouth 2 it y of ) 1,000 mg 00:00: (two) [place] tablet 00 times Medical daily with Branch meals. exenatide 0 Yes [id number] 2mg inject 2 Univers microsphere 2-17 mg under ity of s 00:00: the skin [place] ([facility]) 00 weekly. Medica l 2 mg/0.65 Branch mL PnIj metFORMIN 2015-0 Yes [id number] 1000mg Take 1 Tab Univers (GLUCOPHAGE 2-17 by mouth 2 it y of ) 1,000 mg 00:00: (two) [place] tablet 00 times Medical daily with Branch meals. exenatide 0 Yes [id number] 2mg inject 2 Univers microsphere 2-17 mg under ity of s 00:00: the [facility] ([facility]) 00 weekly. Medica l 2 mg/0.65 Branch mL PnIj metFORMIN 0 Yes [id number] 1000mg Take 1 Tab Univers (GLUCOPHAGE 2-17 by mouth 2 it y of ) 1,000 mg 00:00: (two) [place] tablet 00 times Medical daily with Branch meals. exenatide 0 Yes [id number] 2mg inject 2 Univers microsphere 2-17 mg under ity of s 00:00: the [facility] ([facility]) 00 weekly. Medica l 2 mg/0.65 Branch mL PnIj metFORMIN 2014-0 Yes [id number] 1000mg Take 1 Tab Univers (GLUCOPHAGE 2-17 by mouth 2 it y of ) 1,000 mg 00:00: (two) [place] tablet 00 times Medical daily with Branch meals. exenatide 0 Yes [id number] 2mg inject 2 Univers microsphere 2-17 mg under ity of s 00:00: the [facility] ([facility]) 00 weekly. Medica l 2 mg/0.65 Branch mL PnIj metFORMIN 0 Yes [id number] 1000mg Take 1 Tab Univers (GLUCOPHAGE 2-17 by mouth 2 it y of ) 1,000 mg 00:00: (two) [place] tablet 00 times Medical daily with Branch meals. exenatide 0 Yes [id number] 2mg inject 2 Univers microsphere 2-17 mg under ity of s 00:00: the [facility]) 00 weekly. Medica l 2 mg/0.65 Branch mL PnIj metFORMIN 2014-0 Yes [id number] 1000mg Take 1 Tab Univers (GLUCOPHAGE 2-17 by mouth 2 it y of ) 1,000 mg 00:00: (two) [place] tablet 00 times Medical daily with Branch meals. exenatide 2014-0 Yes [id number] 2mg inject 2 Univers microsphere 2-17 mg under ity of s 00:00: the [facility] ([facility]) 00 weekly. Medica l 2 mg/0.65 Branch mL PnIj metFORMIN Yes [id number] 1000mg Take 1 Tab Univers (GLUCOPHAGE 2-17 by mouth 2 it y of ) 1,000 mg 00:00: (two) [place] tablet 00 times Medical daily with Branch meals. exenatide Yes [id number] 2mg inject 2 [facility] microsphere 2-17 mg under ity of s 00:00: the skin [place] ([facility]) 00 weekly. Medica l 2 mg/0.65 Branch mL PnIj metFORMIN Yes [id number] 1000mg Take 1 Tab Univers (GLUCOPHAGE 2-17 by mouth 2 it y of ) 1,000 mg 00:00: (two) [place] tablet 00 times Medical daily with Branch meals. Insulin 2013-10 Yes 12U inject 12 Unive rs Detemir 0-22 Units ity of (LEVEMIR 17:17: [place] FLEXPEN[place] 23 skin. Medical 100 unit/mL Branch (3 mL) In levothyroxi 2013-10 Yes 88ug Take 88 Uni vers ne 0-22 mcg by ity of (SYNTHROID) 17:17: mouth [place] 88 mcg 23 every Medical tablet morning. Branch Insulin 2013-10 Yes 12U inject 12 Unive rs Detemir 0-22 Units ity of (LEVEMIR 17:17: [place] FLEXPEN) 23 skin. Medical 100 unit/mL Branch (3 mL) In levothyroxi 2013-10 Yes 88ug Take 88 Uni vers ne 0-22 mcg by ity of (SYNTHROID) 17:17: mouth [place] 88 mcg 23 every Medical tablet morning. Branch Immunizations Ordered Filled Immunization Date Status Comments [facility] e Immunization Name Name Influenza High Dose 2020-09-24 Completed [facility] 00:00:00 [facility] Influenza High Dose 2020-09-24 Completed [facility] 00:00:00 [facility] Influenza High Dose 2020-09-24 Completed [facility] 00:00:00 [facility] Influenza High Dose 2020-09-24 Completed [facility] 00:00:00 [facility] Influenza High Dose 2020-09-24 Completed [facility] 00:00:00 [facility] Influenza High Dose 2020-09-24 Completed [facility] 00:00:00 [facility] Influenza High Dose 2020-09-24 Completed [facility] 00:00:00 [facility] Influenza High Dose 2020-09-24 Completed [facility] 00:00:00 [facility] Influenza High Dose 2020-09-24 Completed [facility] 00:00:00 [facility] Influenza High Dose 2020-09-24 Completed [facility] [place] 00:00:00 [facility] Influenza High Dose 2020-09-24 Completed [facility] 00:00:00 [facility] Influenza High Dose 2020-09-24 Completed [facility] 00:00:00 [facility] Influenza High Dose 2020-09-24 Completed [facility] 00:00:00 [facility] Influenza High Dose 2020-09-24 Completed [facility] 00:00:00 [facility] Influenza High Dose 2020-09-24 Completed [facility] [place] 00:00:00 [facility] Influenza High Dose 2020-09-24 Completed [facility] 00:00:00 [facility] Influenza High Dose 2020-09-24 Completed [facility] 00:00:00 [facility] Influenza High Dose 2020-09-24 Completed [facility] 00:00:00 [facility] Vital Signs Vital Name Observation Time Observation Value Comments Source Systolic blood 2022-04-07 18:21:00 132 mm[Hg] Univer sity of pressure [facility] Diastolic blood 2022-04-07 18:21:00 74 mm[Hg] Unive rsity of pressure [facility] Heart rate 2022-04-07 18:21:00 71 /min [facility] Body temperature 2022-04-07 18:21:00 36.89 Nan Univ ersity of [facility] Respiratory rate 2022-04-07 18:21:00 17 /min Univ ersity of [facility] Body height 2022-04-07 18:21:00 157.5 cm [facility] Body weight 2022-04-07 18:21:00 76.658 kg [facility] BMI 2022-04-07 18:21:00 30.91 kg/m2 [facility] Oxygen saturation in 2022-04-07 18:21:00 97 /min University of Arterial blood by [facility] Pulse oximetry Branch Systolic blood 2020-11-20 21:31:00 136 mm[Hg] Univer sity of pressure [facility] Diastolic blood 2020-11-20 21:31:00 71 mm[Hg] Unive rsity of pressure [facility] Heart rate 2020-11-20 21:29:00 74 /min [facility]i [facility] Respiratory rate 2020-11-20 21:29:00 19 /min Univ ersity of [facility] Body height 2020-11-20 21:29:00 157.5 cm [facility] Body weight 2020-11-20 21:29:00 75.66 kg [facility] BMI 2020-11-20 21:29:00 30.51 kg/m2 [facility] Oxygen saturation in 2020-11-20 21:29:00 98 /min University of Arterial blood by [facility] Pulse oximetry Branch Systolic blood 2020-10-21 22:30:30 117 mm[Hg] Univer sity of pressure [facility] Diastolic blood 2020-10-21 22:30:30 63 mm[Hg] Unive rsity of pressure [facility] Heart rate 2020-10-21 22:30:30 76 /min [facility]i [facility] Respiratory rate 2020-10-21 22:30:30 16 /min Univ ersity of [facility] Oxygen saturation in 2020-10-21 22:30:30 98 /min University of Arterial blood by [facility] Pulse oximetry Branch Body temperature 2020-10-21 21:07:00 37.5 Nan Univ ersity of [facility] Body weight 2020-10-21 21:07:00 72.576 kg [facility] BMI 2020-10-21 21:07:00 29.26 kg/m2 [facility] Systolic blood 2020-09-24 14:31:00 132 mm[Hg] Univer sity of pressure [facility] Diastolic blood 2020-09-24 14:31:00 65 mm[Hg] Unive rsity of pressure [facility] Heart rate 2020-09-24 14:31:00 69 /min [facility]i [facility] Body temperature 2020-09-24 14:31:00 36.28 Nan Univ [facility] of [facility] Respiratory rate 2020-09-24 14:31:00 16 /min Univ ersity of [facility] Oxygen saturation in 2020-09-24 14:31:00 95 /min University of Arterial blood by [facility] Pulse oximetry Branch Body height 2020-09-20 11:00:00 157.5 cm [facility] Body weight 2020-09-20 11:00:00 72.576 kg [facility] BMI 2020-09-20 11:00:00 29.26 kg/m2 [facility] Systolic blood 2020-09-24 14:31:00 132 mm[Hg] Univer sity of pressure [facility] Diastolic blood 2020-09-24 14:31:00 65 mm[Hg] Unive rsity of pressure [facility] Heart rate 2020-09-24 14:31:00 69 /min [facility]i [facility] Body temperature 2020-09-24 14:31:00 36.28 Nan Univ [facility] Respiratory rate 2020-09-24 14:31:00 16 /min Univ ersity of [facility] Oxygen saturation in 2020-09-24 14:31:00 95 /min University of Arterial blood by [facility] Pulse oximetry Branch Body height 2020-09-20 11:00:00 157.5 cm [facility] Body weight 2020-09-20 11:00:00 72.576 kg [facility] BMI 2020-09-20 11:00:00 29.26 kg/m2 [facility] Systolic blood 2020-09-16 22:08:00 128 mm[Hg] Univer sity of pressure [facility] Diastolic blood 2020-09-16 22:08:00 72 mm[Hg] Unive rsity of pressure [facility] Heart rate 2020-09-16 22:08:00 97 /min [facility] Body temperature 2020-09-16 22:08:00 36.78 Nan [facility] Respiratory rate 2020-09-16 22:08:00 16 /min Univ ersity of [facility] Body height 2020-09-16 22:08:00 157.5 cm [facility] Body weight 2020-09-16 22:08:00 77.111 kg Universi ty [facility] BMI 2020-09-16 22:08:00 31.09 kg/m2 Universi ty [facility] Oxygen saturation in 2020-09-16 22:08:00 97 /min University of Arterial blood by [facility] Pulse oximetry Branch Systolic blood 2020-09-16 22:08:00 128 mm[Hg] Univer sity of pressure [facility] Diastolic blood 2020-09-16 22:08:00 72 mm[Hg] Unive rsity of pressure [facility] Heart rate 2020-09-16 22:08:00 97 /min Universi ty [facility] Body temperature 2020-09-16 22:08:00 36.78 Nan [facility] 2020-09-16 22:08:00 16 /min [facility] Body height 2020-09-16 22:08:[address] [facility] Body weight 2020-09-16 22:08:00 77.111 kg [facility] [place] [facility] BMI 2020-09-16 22:08:00 31.09 kg/m2 Universi [facility] Oxygen saturation in 2020-09-16 22:08:00 97 /min [place] of Arterial blood by [facility] Pulse oximetry Branch Body height 2022-04-13 22:15:00 157.5 cm [facility] Body weight 2022-04-13 22:15:00 73.483 kg [facility] BMI 2022-04-13 22:15:00 29.63 kg/m2 [facility] Procedures Procedure Date / Time Performing Clinician Source Performed XR KNEE AP STANDING 2022-04-13 22:20:06 Billie Choi [facility] BILATERAL MA ARTHROCENTESIS 2022-04-13 21:40:00 Billie Choi [facility] ASPIR&/INJ MAJOR JT/BURSA W/O US XR KNEE 3 VW LEFT 2022-04-07 18:39:00 Anh Cardenas [facility] XR LOWER EXTREMITY 2022-04-07 18:35:31 Billie Choi [facility] EXTERNAL STUDY CONSENT/REFUSAL FOR 2022-04-07 18:14:20 Doctor Unassigned, [facility] [place] DIAGNOSIS AND TREATMENT [facility] ASSIGNMENT OF BENEFITS 2022-04-07 18:14:04 Doctor Vicente [facility] Name Medical Branch MEDICATION CORRESPONDENCE 2021-01-05 05:01:00 Doctor Vicente [facility] REFERRAL- 2020-12-10 06:01:00 Doctor Vicente, [facility] REQUEST/RESPONSE [facility] EXTERNAL PROVIDER RECORDS 2020-11-05 06:01:00 Doctor Zhang [facility] CONSENT/REFUSAL FOR 2020-10-21 20:58:02 Doctor Vicente [facility] DIAGNOSIS AND TREATMENT [facility] [place] POCT GLUCOSE (AUTOMATED) 2020-09-24 18:07:00 Yolanda Bianchi [facility] POCT GLUCOSE (AUTOMATED) 2020-09-24 14:33:00 Yolanda Bianchi [facility] POCT GLUCOSE (AUTOMATED) 2020-09-24 12:24:00 Yolanda Bianchi [facility] POCT GLUCOSE (AUTOMATED) 2020-09-24 05:38:00 Yolanda Bianchi [facility] POCT GLUCOSE (AUTOMATED) 2020-09-24 00:14:00 Yolanda Bianchi [facility] POCT GLUCOSE (AUTOMATED) 2020-09-23 18:06:00 Yolanda Bianchi [facility] POCT GLUCOSE (AUTOMATED) 2020-09-23 14:45:00 Yolanda Bianchi [facility] POCT GLUCOSE (AUTOMATED) 2020-09-23 12:15:00 Yolanda Bianchi [facility] BASIC METABOLIC PANEL 2020-09-23 12:04:00 Miriam Justice [facility] (NA, K, CL, CO2, GLUCOSE, Medica l Branch BUN, CREATININE, CA) POCT GLUCOSE (AUTOMATED) 2020-09-23 06:08:00 Yolanda Bianchi [facility] POCT GLUCOSE (AUTOMATED) 2020-09-23 02:40:00 Yolanda Bianchi [facility] POCT GLUCOSE (AUTOMATED) 2020-09-22 23:25:00 Ger Bianchihadley Spaulding [facility] POCT GLUCOSE (AUTOMATED) 2020-09-22 18:26:00 ZulylatoyaPakoYolanda K [facility] POCT GLUCOSE (AUTOMATED) 2020-09-22 06:36:00 ZulylatoyaYolanda [facility] POCT GLUCOSE (AUTOMATED) 2020-09-21 23:59:00 [facility] POCT GLUCOSE (AUTOMATED) 2020-09-21 18:07:00 [facility] POCT GLUCOSE (AUTOMATED) 2020-09-21 12:17:00 [facility] C-REACTIVE PROTEIN 2020-09-21 09:54:00 [facility] BASIC METABOLIC PANEL 2020-09-21 09:54:00 [facility] (NA, K, CL, CO2, GLUCOSE, Medica l Branch BUN, CREATININE, CA) CBC WITH DIFF 2020-09-21 09:54:00 Mendoza, [facility] POCT GLUCOSE (AUTOMATED) 2020-09-21 06:10:00 [facility] POCT GLUCOSE (AUTOMATED) 2020-09-20 23:01:00 [facility] POCT GLUCOSE (AUTOMATED) 2020-09-20 18:29:00 Gabriel Mckinnon [facility] POCT GLUCOSE (AUTOMATED) 2020-09-20 14:38:00 [facility]W 2020-09-20 05:54:31 Dillon Lester [facility] FERRITIN SERUM 2020-09-20 05:50:00 [facility]OPONIN I 2020-09-20 05:50:00 Dillon Lester [facility] COMP. METABOLIC PANEL 2020-09-20 05:50:00 Dillon Lester [facility] ([id number]) [facility] CBC WITH DIFF 2020-09-20 05:50:00 Dillon Lester [facility] GLYCOSYLATED HEMOGLOBIN 2020-09-20 05:50:00 Remberto Mendoza [facility] (A1C) Medical Branch POCT GLUCOSE(AGE 2020-09-20 05:50:00 Dillon Lester [facility] 0-30DAYS) Medical Branch N-TERMINAL PRO-BNP 2020-09-20 05:50:00 Dillon Lester [facility] Medical Branch POCT GLUCOSE (AUTOMATED) 2020-09-20 05:49:00 Patricia Waller [facility] NOTICE OF PRIVACY 2020-09-20 05:20:39 Doctor Unassigned, [facility] PRACTICES [facility] CONSENT/REFUSAL FOR 2020-09-20 05:20:23 Doctor Unassanushka, [facility] DIAGNOSIS AND TREATMENT [facility] AGREEMENTS AUTHORIZATIONS 2020-09-19 06:01:00 Doctor Unassanushka, [facility] AND IRREVOCABLE [facility] ASSIGNMENTS (FORM 2000) POCT FLU A AND B 2020-09-16 22:28:00 Yonathan Dempsey [facility] (MOLECULAR) Medical Branch Plan of Care Planned Activity Planned Date Details Comments Source Future Scheduled 2022-09-23 COVID-19 VACCINE (#1) [facility] Test 22:54:00 [code = COVID-19 VACCINE (#1)] Future Scheduled 2022-09-23 Hepatitis C screening [facility] Test 22:54:00 (procedure) [code = 748302627] Future Scheduled 2022-09-23 BREAST CANCER [facility] Test 22:54:00 SCREENING [code = BREAST CANCER SCREENING] Future Scheduled 2022-09-23 COLONOSCOPY SCREENING [facility] Test 22:54:00 [code = COLONOSCOPY SCREENING] Future Scheduled 2022-09-23 SHINGLES [facility]ACCINES ([facility]:54:00 of 2) [code = SHINGLES VACCINES (1 of 2)] Future Scheduled 2022-09-23 65+ [facility]OCOCCAL [facility] Test 22:54:00 VACCINE (1 - PCV) [code = 65+ PNEUMOCOCCAL VACCINE (1 - PCV)] Future Scheduled 2022-09-23 INFLUENZA VACCINE [facility] Test 22:54:00 [code = INFLUENZA VACCINE] Encounters Start End Encounter Admission Attending Care Care Encounter Source Date/Time Date/Time Type Type Clinicians Facility Department ID 2021-08-08 Emergency [facility] [id number] Univers 16:50:56 ity of [facility] 2021-08-08 Emergency [facility] [id number] Univers 10:52[facility] 2022-07-30 2022-07-30 Refill Luana, 1.2.840.1 [id number] Methodi 00:00:00 00:00:[address] [facility] 3.430.2.7 Hospit a .3.580725 l .8 2022-06-05 2022-06-05 Refill Luana, 1.2.840.1 [id number] Methodi 00:00:00 00:00:[address] [place] 3.430.2.7 Hospit a .3.841949 l .8 2022-04-13 2022-04-13 [facility], 1.2.840.1 [id number] Methodi 17:10:48 23:59:00 Encounter Billie 74263.1.[address] [place] 3.430.2.7 Hospit a .3.526197 l .8 2022-04-13 2022-04-13 Office [facility], 1.2.840.1 [id number] Methodi 16:40:00 18:03:10 Visit Billie 66010.1.[address] [facility] 3.430.2.7 Hospit a .3.893219 l .8 2022-04-13 2022-04-13 Telephone Mazariegos, [facility] 1.2.621.012 [id number] Univers 00:00:00 00:00:00 [facility] [id number] ity db RUSSELL 4.2.7.2.686 Omar as YG?BLEA [phone] [address] MEDICAL OFFICE BUILDING 2022-04-13 2022-04-13 [facility] [id number] [place] 00:00:00 00:00:[address] 2022-04-13 2022-04-13 Outpatient LUANA, [facility] [id number] [place] 00:00:00 00:00:00 BILLIE 077 Method i 2022-04-13 2022-04-13 Outpatient LUANA, [facility] [id number] [place] 00:00:00 00:00:00 BILLIE 381 Method i 2022-04-13 2022-04-13 Orders Luana, 1.2.840.1 [id number] Methodi 00:00:00 00:00:00 Only Billie 34695.1.[address] [place] 3.430.2.7 Hospit a .3.162961 l .8 2022-04-13 2022-04-13 Travel 1.2.840.1 1.2.277.981 [id number] Methodi 00:00:00 00:00:[address] 3.430.2.7 0.2.7.3.698 Ho spita .3.925687 084.8 l .8 2022-04-09 2022-04-09 Telephone [facility] 1.2.430.736 [id number] Univers 00:00:00 00:00:00 [facility] HEALTH 350.1.13.10 ity of [place] 4.2.7.2.686 Omar as YG?BLEA [phone] [facility] [address] MEDICAL OFFICE [facility] 2022-04-07 2022-04-07 Outpatient R RONALD [facility] [id number] Univers 13:27:11 23:59:00 ANH ity [facility] 2022-04-07 2022-04-07 [facility] 1.2.840.114 [id number] Univers 13:27:11 23:59:00 Encounter [facility] 350.1.13.10 ity [facility] 4.2.7.2.686 Omar as YG?BLEA [id number] [facility] [address] MEDICAL OFFICE [facility] 2022-04-07 2022-04-07 [facility]gent [facility] 1.2.840.114 [id number] Univers 13:20:00 13:32:38 Care [facility] 350.1.13.10 it [facility] 4.2.7.2.686 Omar as YG?BLEA [id number] [address] MEDICAL OFFICE BUILDING 2022-04-07 2022-04-07 Orders Doctor TANIA 1.2.840.114 [id number] Univers 00:00:00 00:00:00 Only Unassigned, WAQAS 350.1.13.10 ity of [facility] 4.2.7.2.686 Omar as [phone] [address] 2021-02-16 2021-02-16 Letter TANIA Frausto 1.2.840.114 [id number] Univers 00:00:00 00:00:00 (Out) Keenan WAQAS 350.1.13.10 it y of HOSPITAL 4.2.7.2.686 Omar as [phone] [address] 2021-02-06 2021-02-06 Outpatient R MACIEL CHO [facility] 10 [id number] Univers 15:30:00 15:30:00 MACIEL CHO i ty of [facility] 2021-01-05 2021-01-05 Orders Doctor TANIA 1.2.840.114 [id number] Univers 00:00:00 00:00:00 Only Unassigned, WAQ[facility] 350.1.13.10 [facility]y of [facility] 4.2.7.2.686 Omar as [phone] [address] 2020-12-30 2020-12-30 Outpatient Tania Davenport [facility]0 [id number] [facility] 12:00:00 12:00:00 97 [facility] 2020-12-10 2020-12-10 Orders Doctor TANIA 1.2.840.114 [id number] Univers 00:00:00 00:00:00 Only UnassignedWAQAS 350.1.13.10 ity of [facility] 4.2.7.2.686 Omar as [phone] [address] 2020-12-08 2020-12-08 Patient TRISTAN Sarmiento 1.2.840.114 [id number] Univers 00:00:00 00:00:00 Outreach Jett PRIMARY 350.1.13.10 i ty of [facility] [place].2.[place] [id number] Wa dical [address] 2020-11-27 2020-11-27 Telephone Dayna [facility] 1.2.493.056 [id number] Univers 00:00:00 00:00:00 Maciel Russell 350.1.13.10 i ty [place] Profess[place] [phone] Wa dical nal [facility] [facility] 2020-11-20 2020-11-20 [facility] 1.2.840.114 [id number] Univers 15:12:21 15:45:10 [facility] Russell 350.1.13.10 i ty [place].2.[place] [phone] Wa dicmd nal [facility] 2020-11-20 2020-11-20 Outpatient R MACIEL CHO [facility] [id number] Univers 15:20:00 15:20:00 MACIEL CHO i ty of [facility] 2020-11-06 2020-11-06 Outpatient R [facility] [id number] Univers 17:20:00 17:20:00 ity of [facility] 2020-11-06 2020-11-06 Laboratory Lab, [facility] Fam Pob I [facility] 1.2. 840.114 [id number] Univers 16:58:18 17:18:18 Only Angelina Ang [facility] 350.1.13.10 ity of [place] 4.2.7.2.686 Omar as Professio [phone] [facility] nal [address] 2020-11-05 2020-11-05 Orders Doctor MARIN 1.2.840.114 [id number] Univers 00:00:00 00:00:00 Only UnassWAQAS reveles 350.1.13.[address] [place] [facility] 4.2.7.2.686 Omar as [id number] [address] 2020-11-04 2020-11-04 Outpatient R MAXIME [facility] [id number] Univers 09:00:00 09:00:00 WONDIFUL ity o f [facility] 2020-10-21 2020-10-21 Emergency [facility] 1.2.840.114 [id number] Univers 15:08:00 16:45:00 Michaelhadley Treviñoton 350.1.13.10 i ty of [place] [phone] [address] 2020-10-15 2020-10-15 Outpatient R RADIOLOGY [facility] [id number] Univers 00:00:00 00:00:00 ity [facility] 2020-10-07 2020-10-07 Laboratory Lab, [facility] 1.2.840.114 [id number] 10:47:21 11:07:21 Only Fam Pob I Health 350.1.13.10 [place] 4.2.7.2.686 Professio [phone] [place] [address] [address] 2020-10-07 2020-10-07 Laboratory Lab, [facility] Fam Pob I [facility] 1.2. 840.114 [id number] Univers 10:47:21 11:07:21 Only Omlorna, Yonathan Health 350.1.13.10 ity of [place] 4.2.7.2.686 Omar Professio [phone] Wa dical [address] Office Building [facility] 2020-10-07 2020-10-07 Outpatient R TRIP, [facility] [id number] Univers 11:00:00 11:00:00 OMAYEMI ity [facility] 2020-09-25 2020-09-25 Transition Reynaldo Reis 1.2.840.114 [id number] 00:00:00 00:00:00 of Care Pilar Gold Puente 350.1.13.10 [place] 4.2.7.2.686 [id number] [facility] 2020-09-25 2020-09-25 Transition Reynaldo Reis 1.2.840.114 [id number] Univers 00:00:00 00:00:00 of Care Pilar Espitiay 350.1.13.10 i ty of [place] [phone] [address] 2020-09-19 2020-09-24 [facility] Patricia Waller Hermila 1.2.840.11 [id number] 23:20:00 18:45:00 Encounter Pratibha Gabriel Alan 350.1.13.1 0 [facility] 4.2.7.2.686 [id number] [facility] 2020-09-19 2020-09-24 [facility] Patricia Waller 1.2.840.11 [id number] [facility] 23:20:00 18:45:00 Encounter Gabriel Mckinnon Rajeshbethany Waqas 350.1.13.1 0 ity of [facility] 4.2.7.2.686 Ashley Marrza [phone] [address] 2020-09-16 2020-09-16 Urgent Provider, [facility] 1.2.898.957 [id number] 16:03:40 16:43:47 Care [facility] 350.1.13.10 Care [place] 4.2.7.2.686 Professio [phone] [place] [address] Office [address] 2020-09-16 2020-09-16 Urgent Provider, [facility] 1.2.840.114 [id number] [facility] 16:03:40 16:43:47 Care Cate, Gaudencio Health 350.1.13.10 ity of [place] 4.2.7.2.686 Omar as Professio [phone] [address] Office [address] 2020-09-16 2020-09-16 Outpatient R CATE, [facility] [id number] Univers 16:00:00 16:00:00 GAUDENCIO mayer of [facility] 2020-09-16 2020-09-16 Letter Doctor TANIA 1.2.840.114 [id number] 00:00:00 00:00:00 (Out) Unassigned, WAQAS 350.1.13.10 [facility] 4.2.7.2.686 [id number] [facility] 2020-09-16 2020-09-16 Letter Doctor TANIA 1.2.840.114 [id number] 00:00:00 00:00:00 (Out) Unassigned, WAQAS 350.1.13.10 [facility] 4.2.7.2.686 [id number] 2020-09-16 2020-09-16 Letter Doctor TANIA 1.2.840.114 [id number] Univers 00:00:00 00:00:00 (Out) Unassigned, WAQAS 350.1.13.10 ity of [facility] 4.2.7.2.686 Omar as [id number] [address] 2020-09-16 2020-09-16 Letter Doctor TANIA 1.2.840.114 [id number] Univers 00:00:00 00:00:00 (Out) Unassigned, WAQAS 350.1.13.[address] [place] [facility] 4.2.7.2.686 Omar as [phone] [address] 2020-09-09 2020-09-09 Outpatient Lewis DELGADILLO [facility] [id number] [facility] [facility] 18:20:00 18:20:00 LOU [facility] Results Test Description Test Time Test Comments Results Result Comments Source POCT GLUCOSE (AUTOMATED) 2020-09-24 18:08:00 Test Item Value Reference Range Interpretation Comme nts POCT GLU (test code = 6897482895) 135 mg/dL 70-110 H Lab Interpretation (test code = 07380-4) Abnormal [facility] GLUCOSE (AUTOMATED)2020-09-24 14:34:00 Test Item Value Reference Range Interpretation Comments POCT GLU (test code = 8492778181) 140 mg/dL 70-110 H Lab Interpretation (test code = Abnormal 99257-3) [facility] GLUCOSE (AUTOMATED)2020-09-24 12:25:00 Test Item Value Reference Range Interpretation Comments POCT GLU (test code = 8988269245) 158 mg/dL 70-110 H Lab Interpretation (test code = Abnormal 26377-9) [facility] GLUCOSE (AUTOMATED)2020-09-24 05:40:00 Test Item Value Reference Range Interpretation Comments POCT GLU (test code = 8227916022) 156 mg/dL 70-110 H Lab Interpretation (test code = Abnormal 14416-9) [facility] GLUCOSE (AUTOMATED)2020-09-24 00:20:00 Test Item Value Reference Range Interpretation Comments POCT GLU (test code = 3066580437) 146 mg/dL 70-110 H Lab Interpretation (test code = Abnormal 16944-7) [facility] GLUCOSE (AUTOMATED)2020-09-23 18:07:00 Test Item Value Reference Range Interpretation Comments POCT GLU (test code = 9328239034) 139 mg/dL 70-110 H Lab Interpretation (test code = Abnormal 80772-0) [facility] GLUCOSE (AUTOMATED)2020-09-23 14:46:00 Test Item Value Reference Range Interpretation Comments POCT GLU (test code = 6979171714) 130 mg/dL 70-110 H Lab Interpretation (test code = Abnormal 90998-4) [facility] METABOLIC PANEL (NA, K, CL, CO2, GLUCOSE, BUN, CREATININE, CA)2020-09-23 12:59:00 Test Item Value Reference Range Interpretation Comments NA (test code = 133 mmol/L 135-145 L 9990163594) K (test code = 3.6 mmol/L 3.5-5 2886825479) CL (test code = 99 mmol/L 98-108 5696659847) CO2 TOTAL (test code = 26 mmol/L 23-31 9316492400) AGAP (test code = 2-16 8935717343) BUN (test code = 10 mg/dL 7-23 2543924131) GLUCOSE (test code = 147 mg/dL 70-110 H 2447446816) CREATININE (test code = 0.41 mg/dL 0.5-1.04 L 3421400383) CALCIUM (test code = 8.5 mg/dL 8.6-10.6 L 5249395661) eGFR Calculation mL/min/1.73m2 (Non-) (test code = 2237759607) eGFR Calculation mL/min/1.73m2 () (test code = 1503000076) VENICE (test code = VENICE) Association of Glomerular Filtration Rate (GFR) and Staging of Kidney Disease* + --+ --+ ------+| GFR (mL/min/1.73 m2) ?| With Kidney Damage ?| ?Without Kidney Damage+ --------+ --------+ +| ?>90 ?| ?Stage one ?| ? Normal ?+ ---+ ---+ -------+| ?60-89 ?| ?Stage two ?| ? Decreased GFR ? + --+ --+ ------+| ?30-59 ?| ?Stage three ?| ? Stage three ? + --+ --+ ------+| ?15-29 ?| ?Stage four ? | ? Stage four ?+ ---+ ---+ -------+| ?<15 (or dialysis) ? ?| ?Stage five ? | ? Stage five ?+ ---+ ---+ -------+ *Each stage assumes the associated GFR level has been in effect for at least three months. ?Stages 1 to 5, with or without kidney disease, indicate chronic kidney disease. Notes: Determination of stages one and two (with eGFR >59mL/min/1.73 m2) requires estimation of kidney damage for at least three months as defined by structural or functional abnormalities of the kidney, manifested by either:Pathological abnormalities or Markers of kidney damage (including abnormalities in the composition of the blood or urine or abnormalities in imaging tests). Lab Interpretation Abnormal (test code = 33123-9) [facility] GLUCOSE (AUTOMATED)2020-09-23 12:52:00 Test Item Value Reference Range Interpretation Comments POCT GLU (test code = 0005082214) 142 mg/dL 70-110 H Lab Interpretation (test code = Abnormal 85843-9) [facility] GLUCOSE (AUTOMATED)2020-09-23 06:08:00 Test Item Value Reference Range Interpretation Comments POCT GLU (test code = 1263174278) 134 mg/dL 70-110 H Lab Interpretation (test code = Abnormal 49802-9) [facility] GLUCOSE (AUTOMATED)2020-09-23 02:41:00 Test Item Value Reference Range Interpretation Comments POCT GLU (test code = 0665694973) 169 mg/dL 70-110 H Lab Interpretation (test code = Abnormal 81986-7) [facility] GLUCOSE (AUTOMATED)2020-09-22 23:26:00 Test Item Value Reference Range Interpretation Comments POCT GLU (test code = 7630144934) 114 mg/dL 70-110 H Lab Interpretation (test code = Abnormal 86586-1) [facility] GLUCOSE (AUTOMATED)2020-09-22 18:28:00 Test Item Value Reference Range Interpretation Comments POCT GLU (test code = 118 mg/dL 70-110 H Notifi ed Provider [id number]) Lab Interpretation (test Abnormal code = 35970-5) [facility] GLUCOSE (AUTOMATED)2020-09-22 06:39:00 Test Item Value Reference Range Interpretation Comments POCT GLU (test code = 9972983139) 129 mg/dL 70-110 H Lab Interpretation (test code = Abnormal 49426-8) [facility] GLUCOSE (AUTOMATED)2020-09-22 00:01:00 Test Item Value Reference Range Interpretation Comments POCT GLU (test code = 5883886048) 129 mg/dL 70-110 H Lab Interpretation (test code = Abnormal 76439-6) [id number] 20:36:00 Test Item Value Reference Range Interpretation Comments CRP (test code = 6852762268) 11.4 mg/dL <0.8 H Lab Interpretation (test code = Abnormal 03949-7) [facility] GLUCOSE (AUTOMATED)2020-09-21 18:18:00 Test Item Value Reference Range Interpretation Comments POCT GLU (test code = 9304876429) 119 mg/dL 70-110 H Lab Interpretation (test code = Abnormal 50051-0) [facility] GLUCOSE (AUTOMATED)2020-09-21 12:20:00 Test Item Value Reference Range Interpretation Comments POCT GLU (test code = 8615169737) 134 mg/dL 70-110 H Lab Interpretation (test code = Abnormal 52405-2) [facility] Metabolic Panel (NA, K, CL, CO2, GLUCOSE, BUN, CREATININE, CA)2020-09-21 11:31:00 Test Item Value Reference Range Interpretation Comments NA (test code = 132 mmol/L 135-145 L 4648558924) K (test code = 3.9 mmol/L 3.5-5 7683879079) CL (test code = 100 mmol/L 98-108 9566209113) CO2 TOTAL (test code = 20 mmol/L 23-31 L 0986964722) AGAP (test code = 2-16 6707217942) BUN (test code = 15 mg/dL 7-23 8883625117) GLUCOSE (test code = 139 mg/dL 70-110 H 6404715795) CREATININE (test code = 0.48 mg/dL 0.5-1.04 L 2229060195) CALCIUM (test code = 8.8 mg/dL 8.6-10.6 3515894712) eGFR Calculation mL/min/1.73m2 (Non-) (test code = 5237177704) eGFR Calculation mL/min/1.73m2 () (test code = 0854809279) VENICE (test code = VENICE) Association of Glomerular Filtration Rate (GFR) and Staging of Kidney Disease* + --+ --+ ------+| GFR (mL/min/1.73 m2) ?| With Kidney Damage ?| ?Without Kidney Damage+ --------+ --------+ +| ?>90 ?| ?Stage one ?| ? Normal ?+ ---+ ---+ -------+| ?60-89 ?| ?Stage two ?| ? Decreased GFR ? + --+ --+ ------+| ?30-59 ?| ?Stage three ?| ? Stage three ? + --+ --+ ------+| ?15-29 ?| ?Stage four ? | ? Stage four ?+ ---+ ---+ -------+| ?<15 (or dialysis) ? ?| ?Stage five ? | ? Stage five ?+ ---+ ---+ -------+ *Each stage assumes the associated GFR level has been in effect for at least three months. ?Stages 1 to 5, with or without kidney disease, indicate chronic kidney disease. Notes: Determination of stages one and two (with eGFR >59mL/min/1.73 m2) requires estimation of kidney damage for at least three months as defined by structural or functional abnormalities of the kidney, manifested by either:Pathological abnormalities or Markers of kidney damage (including abnormalities in the composition of the blood or urine or abnormalities in imaging tests). Lab Interpretation Abnormal (test code = 96813-4) [facility] with [id number] 11:09:00 Test Item Value Reference Range Interpretation Comments WBC (test code = See_Comment [Automated message] 6690-2) The system Snapt generated this result transmitted ref erence range: 4.30 - 1 1.10 10*3/?L. The re ference range was not u sed to interpret this result as normal/abnor mal. RBC (test code = See_Comment [Automated message] 899-8) The system Snapt generated this result transmitted ref erence range: 3.93 - 5 .25 10*6/?L. The re ference range was not u sed to interpret this result as normal/abnor mal. HGB (test code = 13.1 g/dL 11.6-15 718-7) HCT (test code = 38.0 % 35.7-45.2 4544-3) MCV (test code = 90.9 fL 80.6-95.5 787-2) MCH (test code = 31.3 pg 25.9-32.8 785-6) MCHC (test code = 34.5 g/dL 31.6-35.1 786-4) RDW-SD (test code 41.2 fL 39-49.9 = 73163-2) RDW-CV (test code 12.4 % 12-15.5 = 788-0) PLT (test code = See_Comment [Automated message] 777-3) The system Snapt generated this result transmitted ref erence range: 166 - 35 8 10*3/?L. The re ference range was not u sed to interpret this result as normal/abnor mal. MPV (test code = 10.1 fL 9.5-12.9 81837-8) NRBC/100 WBC (test See_Comment [Automat ed message] code = 7830069190) The syste m which generated this result transmitted ref erence range: 0.0 - 10 .0 /100 WBCs. The refer ence range was not u sed to interpret this result as normal/abnor mal. NRBC x10^3 (test <0.01 See_Comment [Automated message] code = 8712114867) The syste m which generated this result transmitted ref erence range: 10*3/?L. The reference range was not used to interpr et this result as normal/abnormal . GRAN MAT (NEUT) % 67.1 % (test code = 770-8) IMM GRAN % (test 0.50 % code = 0577145332) LYMPH % (test code 24.1 % = 736-9) MONO % (test code 6.7 % = 5905-5) EOS % (test code = 1.1 % 713-8) BASO % (test code 0.5 % = 706-2) GRAN MAT 3.81 10*3/uL 1.88-7.09 x10^3(ANC) (test code = 0215165171) IMM GRAN x10^3 0.03 10*3/uL 0-0.06 (test code = 5079795428) LYMPH x10^3 (test 1.37 10*3/uL 1.32-3.29 code = 731-0) MONO x10^3 (test 0.38 10*3/uL 0.33-0.92 code = 742-7) EOS x10^3 (test 0.06 10*3/uL 0.03-0.39 code = 711-2) BASO x10^3 (test 0.03 10*3/uL 0.01-0.07 code = 704-7) [facility] GLUCOSE (AUTOMATED)2020-09-21 06:13:00 Test Item Value Reference Range Interpretation Comments POCT GLU (test code = 2763682793) 140 mg/dL 70-110 H Lab Interpretation (test code = Abnormal 63858-3) [facility] GLUCOSE (AUTOMATED)2020-09-20 23:12:00 Test Item Value Reference Range Interpretation Comments POCT GLU (test code = 7227480815) 133 mg/dL 70-110 H Lab Interpretation (test code = Abnormal 00829-1) [facility] GLUCOSE (AUTOMATED)2020-09-20 18:38:00 Test Item Value Reference Range Interpretation Comments POCT GLU (test code = 1414951947) 169 mg/dL 70-110 H Lab Interpretation (test code = Abnormal 28091-3) [facility] [id number] 17:33:12 Findings suggestive of an atypical infectious process such as COVID-19pneumonia. Preliminary ReportDictated by Resident: Chase Mckeon MD., have reviewed this study and agree with the abovereport.EXAM: XR CHEST 1 VW CLINICAL INDICATION: SOB COMPARISON: None TECHNIQUE: Frontal and lateral views of the chest were obtained. FINDINGS: Bilateral asymmetric peripherally oriented hazy airspace opacities arenoted primarily in the bilateral lower lobes, favoring an atypicalinfectious process such as Covid-19 pneumonia. The cardiac silhouette is normal in size. No acute osseous abnormality. [facility], Radiant Results Inft User - 09/20/2020 11:34 AM CSTEXAM: XR CHEST 1 VWCLINICAL INDICATION: SOB COMPARISON: NoneTECHNIQUE: Frontal and lateral views of the chest were obtained.FINDINGS:Bilateralasymmetric peripherally oriented hazy airspace opacities arenoted primarily in the bilateral lower lobes, favoring an atypicalinfectious process such as Covid-19 pneumonia.The cardiac silhouette is normal in size. No acute osseous abnormality. IMPRESSIONFindings suggestive of an atypical infectious process such as COVID-19pneumonia.Preliminary Report Dictated by Resident: Chase Celestin MD., have reviewed this study and agree with the abovereport.[facility]2020-[facility] 14:45:00 Test Item Value Reference Range Interpretation Comments POCT GLU (test code = 2546634786) 117 mg/dL 70-110 H Lab Interpretation (test code = Abnormal 95587-3) [facility] Center[facility]cos[facility] Hemoglobin (A1C)2020-09-20 12:27:00 Test Item Value Reference Range Interpretation Comments HGB A1C (test code = 8.1 % 4-6 H 4548-4) VENICE (test code = VENICE) %A1C (NGSP) Interpretation (ADA)4.8-5.6 ? ? Normal or (Non-Diabetic Range)5.7-6.4 ? ? Increased Risk (Pre-Diabetic)>6.5 ?Diabetes Indicated Lab Interpretation Abnormal (test code = 09970-7) [facility] CenterFERR[facility]IN [id number] 12:14:00 Test Item Value Reference Range Interpretation Comments FERRITIN (test code = 512.0 ng/mL 11-264 H 8962181999) VENICE (test code = VENICE) Biotin has been reported to cause a negative bias, interpret results relative to patient's use of biotin. Lab Interpretation (test Abnormal code = 90384-5) [facility] CenterTR[facility] [id number] 06:38:00 Test Item Value Reference Range Interpretation Comments TROPONIN I (test <0.012 See_Comment [Automated code = 0885995641) message] The system which generated this result transmitted reference range : <=0.034 ng/mL. The reference range was not used to interpr et this result as normal/abnormal . VENICE (test code = Equal or Less than VENICE) 0.034 ng/ml---Normal ?Note: Cardiac troponin begins to rise 3-4 hours after the onset of ischemia. Repeat in 4-6 hours if the sample was drawn within 3-4 hours of the onset of the symptom and found normal. Between 0.035 and 0.120 ng/mL--- Borderline. Questionable myocardial injury or necrosis ? ?Note: Serial measurement may be necessary to confirm or exclude the diagnosis of myocardial injury or necrosis; Clinical correlation (symptoms, EKGs, imaging studies, and others) required; Repeat in 4-6 hours if clinically indicated. ? Equal or Higher than 0.121 ng/mL---Abnormal. Myocardial Injury or Necrosis Likely ? Biotin has been reported to cause a negative bias, interpret results relative to patient's use of biotin. ? Lab Interpretation Normal (test code = 75025-8) [facility] Center[facility]MINAL [id number] 06:35:00 Test Item Value Reference Range Interpretation Comments NT-proBNP (test code 27 pg/mL See_Comment [Autom ated = 3329076517) message] The system which generated this result transmitted reference range : <=125. The reference range was not used to interpret this result as normal/abnormal . VENICE (test code = VENICE) Biotin has been reported to cause a negative bias, interpret results relative to patient's use of biotin. Lab Interpretation Normal (test code = 67653-1) [facility]. METABOLIC PANEL (11404)2020-09-20 06:26:00 Test Item Value Reference Range Interpretation Comments NA (test code = 128 mmol/L 135-145 L 4401948417) K (test code = 3.8 mmol/L 3.5-5 6945584240) CL (test code = 94 mmol/L 98-108 L 0503927148) CO2 TOTAL (test code = 22 mmol/L 23-31 L 0904459934) AGAP (test code = 2-16 6445534116) BUN (test code = 17 mg/dL 7-23 9808380086) GLUCOSE (test code = 156 mg/dL 70-110 H 6238041160) CREATININE (test code = 0.58 mg/dL 0.5-1.04 8405471700) TOTAL BILI (test code = 1.1 mg/dL 0.1-1.1 7307511713) CALCIUM (test code = 9.0 mg/dL 8.6-10.6 4207346143) T PROTEIN (test code = 7.8 g/dL 6.3-8.2 7487644541) ALBUMIN (test code = 4.1 g/dL 3.5-5 1200812511) ALK PHOS (test code = 40 U/L 34-122 8296552370) ALTv (test code = 24 U/L 5-35 1742-6) AST(SGOT) (test code = 53 U/L 13-40 H 7227753708) eGFR Calculation mL/min/1.73m2 (Non-) (test code = 2708378650) eGFR Calculation mL/min/1.73m2 () (test code = 2909788650) VENICE (test code = VENICE) Association of Glomerular Filtration Rate (GFR) and Staging of Kidney Disease* + --+ --+ ------+| GFR (mL/min/1.73 m2) ?| With Kidney Damage ?| ?Without Kidney Damage+ --------+ --------+ +| ?>90 ?| ?Stage one ?| ? Normal ?+ ---+ ---+ -------+| ?60-89 ?| ?Stage two ?| ? Decreased GFR ? + --+ --+ ------+| ?30-59 ?| ?Stage three ?| ? Stage three ? + --+ --+ ------+| ?15-29 ?| ?Stage four ? | ? Stage four ?+ ---+ ---+ -------+| ?<15 (or dialysis) ? ?| ?Stage five ? | ? Stage five ?+ ---+ ---+ -------+ *Each stage assumes the associated GFR level has been in effect for at least three months. ?Stages 1 to 5, with or without kidney disease, indicate chronic kidney disease. Notes: Determination of stages one and two (with eGFR >59mL/min/1.73 m2) requires estimation of kidney damage for at least three months as defined by structural or functional abnormalities of the kidney, manifested by either:Pathological abnormalities or Markers of kidney damage (including abnormalities in the composition of the blood or urine or abnormalities in imaging tests). Lab Interpretation Abnormal (test code = 85739-5) [facility] WITH [id number] 06:08:00 Test Item Value Reference Range Interpretation Comments WBC (test code = See_Comment [Automated message] 5990-2) The system Snapt generated this result transmitted ref erence range: 4.30 - 1 1.10 10*3/?L. The re ference range was not u sed to interpret this result as normal/abnor mal. RBC (test code = See_Comment [Automated message] 879-8) The system Snapt generated this result transmitted ref erence range: 3.93 - 5 .25 10*6/?L. The re ference range was not u sed to interpret this result as normal/abnor mal. HGB (test code = 13.4 g/dL 11.6-15 718-7) HCT (test code = 39.2 % 35.7-45.2 4544-3) MCV (test code = 91.0 fL 80.6-95.5 787-2) MCH (test code = 31.1 pg 25.9-32.8 785-6) MCHC (test code = 34.2 g/dL 31.6-35.1 786-4) RDW-SD (test code 41.1 fL 39-49.9 = 48271-9) RDW-CV (test code 12.3 % 12-15.5 = 788-0) PLT (test code = See_Comment [Automated message] 657-3) The system Snapt generated this result transmitted ref erence range: 166 - 35 8 10*3/?L. The re ference range was not u sed to interpret this result as normal/abnor mal. MPV (test code = 10.1 fL 9.5-12.9 33431-8) NRBC/100 WBC (test See_Comment [Automat ed message] code = 0106259297) The syste m which generated this result transmitted ref erence range: 0.0 - 10 .0 /100 WBCs. The refer ence range was not u sed to interpret this result as normal/abnor mal. NRBC x10^3 (test <0.01 See_Comment [Automated message] code = 4407967441) The syste m which generated this result transmitted ref erence range: 10*3/?L. The reference range was not used to interpr et this result as normal/abnormal . GRAN MAT (NEUT) % 70.2 % (test code = 770-8) IMM GRAN % (test 0.80 % code = 6782551272) LYMPH % (test code 22.7 % = 736-9) MONO % (test code 5.6 % = 5905-5) EOS % (test code = 0.5 % 713-8) BASO % (test code 0.2 % = 706-2) GRAN MAT 4.50 10*3/uL 1.88-7.09 x10^3(ANC) (test code = 2575171175) IMM GRAN x10^3 0.05 10*3/uL 0-0.06 (test code = 5710246746) LYMPH x10^3 (test 1.45 10*3/uL 1.32-3.29 code = 731-0) MONO x10^3 (test 0.36 10*3/uL 0.33-0.92 code = 742-7) EOS x10^3 (test 0.03 10*3/uL 0.03-0.39 code = 711-2) BASO x10^3 (test <0.03 0.01-0.07 code = 704-7) [facility] GLUCOSE (AUTOMATED)2020-09-20 05:53:00 Test Item Value Reference Range Interpretation Comments POCT GLU (test code = 0513404827) 159 mg/dL 70-110 H Lab Interpretation (test code = Abnormal 56373-5) [facility] GLUCOSE(AGE 0-30DAYS)2020-09-20 05:50:00 Test Item Value Reference Range Interpretation Comments POCT Glu (age 0-30days) (test code 159 mg/dl 40-110 A = 3343) Lab Interpretation (test code = Abnormal 77291-8) [facility] FLU A AND B (MOLECULAR)2020-09-16 22:39:00 Test Item Value Reference Range Interpretation Comments POCT INFLUENZA A (test neg Negative - code = 3840) Negative POCT INFLUENZA B (test neg Negative - code = 3841) Negative VENICE (test code = VENICE) accurate development and interpretation of all internal controls Lab Interpretation Normal (test code = 03261-8) [facility]"
[2022-10-01] MEDS ORDERED: HYDROCODONE/APAP 10/325 TAB ONE (14:57)
--- NOTE | 2022-10-01 15:44 | RAD REPORT ---
EXAM DESCRIPTION: CT - CTHCSPWOC - 10/01/2022 3:05 pm CLINICAL HISTORY: fall, head injury COMPARISON: No comparisons TECHNIQUE: Axial 5 mm thick images of the head were obtained. Axial 2 mm thick images of the cervic al spine were obtained with sagittal and coronal reconstruction images generated and reviewed. All CT scans are performed using dose optimization technique as appropriate and may include automated exposure control or mA/KV adjustment according to patient size. FINDINGS: No intracranial hemorrhage, mass, edema or acute intracranial finding. No suspicion for ac [place] infarction. No extra-axial fluid collections. No significant atrophy or chronic ischemic change. Ventricles are normal. Mastoid air cells and paranasal sinuses are clear. No globe or orbital content abnormality. Small scalp hematoma the seen over the convexity. Underlying bone is intact. Cervical body height and alignment are normal. No significant degree of disc space narrowing. Anterio r and posterior endplate spurs are present. No fracture or acute bony abnormality. Severe right-sided facet hypertrophic degenerative change at C3-4. Prominent disc bulge and endplate spurring changes a t C5-6 cause central spinal stenosis with probable flattening of the cord. Central canal detail is in herently limited. No acute paraspinal mass or hematoma seen. There is a very large lobulated multinodular right-side of the thyroid gland. Calcifications are present. Left-side of the thyroid gland appears grossly normal . There is only a small amount of thyroid tissue on the left. Patient has thyroid history is not know n. IMPRESSION: Small scalp hematoma with underlying bone intact. No acute intracranial finding. Cervical spine degenerative changes are present including central spinal stenosis at C5-6. No acute s pine finding. Large lobulated multinodular right-sided thyroid gland with minimal left-sided thyroid tissue. Patie nt's thyroid history is not known. If needed, follow-up outpatient thyroid ultrasound could be perfor med for dedicated assessment.
--- NOTE | 2022-10-01 16:50 | ER ---
Nurse's Notes [facility] Name: Shelly Yip Age: 66 yrs Sex: Female : 1955 Arrival Date: 10/01/2022 Time: 14:40 Bed 10 Private MD: Diagnosis: Head Injury - Scalp Abrasion, Initial Unspecified Visit Presentation: 10/01 14:46 Chief complaint: Patient states: a wind nithin caused her to lose her balance and she kb3 fell backwards, striking the back of her head on the concrete sidewalk. Denies LOC. Care prior to arrival: None. Mechanism of Injury: Fall from standing position. Trauma event details: Injury occurred in the [facility], Injury occurred: at home. Injury occurred: October 01, 2022 Injury occurred at: 14:15. 14:46 Acuity: ADAN 4 kb3 14:46 Acuity: ADAN 3 kb3 14:46 Method Of Arrival: Ambulatory kb3 14:49 Coronavirus screen: Vaccine status: Patient reports receiving the 2nd dose of the covid kb3 vaccine. Client denies travel out of the [place] in the last 14 days. Ebola Screen: Patient negative for fever greater than or equal to 101.5 degrees Fahrenheit, and additional compatible Ebola Virus Disease symptoms Patient denies exposure to infectious person. Patient denies travel to an Ebola-affected area in the 21 days before illness onset. Initial Sepsis Screen: Does the patient meet any 2 criteria? No. Patient's initial sepsis screen is negative. Does the patient have a suspected source of infection? No. Patient's initial sepsis screen is negative. Risk Assessment: Do you want to hurt yourself or someone else? Patient reports no desire to harm self or others. Onset of symptoms was October 01, 2022 at 14:15. Trauma Activation: Not Applicable Physician: ED Physician; Name: ; Notified At: ; Arrived At: Physician: General Surgeon; Name: ; Notified At: ; Arrived At: Physician: Radiology; Name: ; Notified At: ; Arrived At: Physician: Respiratory; Name: ; Notified At: ; Arrived At: Physician: Lab; Name: ; Notified At: ; Arrived At: Historical: - Allergies: 14:50 Bactrim; kb3 14:50 Zinc; kb3 - Home Meds: 14:50 Metformin [Active]; Levothyroxine [Active]; kb3 - PMHx: 14:50 NIDDM; Hypothyroidism; kb3 - PSHx: 14:50 None; kb3 - Immunization history: Last tetanus immunization: - up to date. - Social history:: Smoking status: Patient denies any tobacco usage or history of. Screenin:46 Abuse screen: Denies threats or abuse. Denies injuries from another. Tuberculosis kb3 screening: No symptoms or risk factors identified. 14:57 [facility] ED Fall Risk Assessment (Adult) Score/Fall Risk Level 0 - 2 = Low Risk hb Oriented to surroundings, Maintained a safe environment. Nutritional screening: No deficits noted. Primary Survey: 14:46 NO uncontrolled hemorrhage observed. A: The client is awake and alert. The airway is kb3 patent. Breathing/Chest: Spontaneous respiratory effort, equal unlabored respirations, breath sounds clear bilaterally, regular pattern, symmetrical chest rise and fall. Circulation: No external hemorrhage present. Regular and strong central pulse, skin warm/dry/normal color. Disability Client is alert. Exposure/Environment: There is no evidence of uncontrolled external bleeding. Reassessment Alertness and Airway: Awake and alert. The airway is patent. Breathing: Spontaneous respiratory effort, equal unlabored respirations, breath sounds clear bilaterally, regular pattern with symmetrical chest rise and fall. Circulation: No external hemorrhage noted. Regular and strong central pulse, skin warm/dry/normal color. Disability: Alert. 15:45 Reassessment Alertness and Airway: Awake and alert. The airway is patent. Breathing: hb Spontaneous respiratory effort, equal unlabored respirations, breath sounds clear bilaterally, regular pattern with symmetrical chest rise and fall. Circulation: No external hemorrhage noted. Regular and strong central pulse, skin warm/dry/normal color. Disability: Alert. 16:45 Reassessment Alertness and Airway: Awake and alert. The airway is patent. Breathing: hb Spontaneous respiratory effort, equal unlabored respirations, breath sounds clear bilaterally, regular pattern with symmetrical chest rise and fall. Circulation: No external hemorrhage noted. Regular and strong central pulse, skin warm/dry/normal color. Disability: Alert. Secondary Survey: 15:45 HEENT: Head Other tiny puncture wound noted to back of head. hb 15:45 Gastrointestinal: No deficits noted. : No deficits noted. Musculoskeletal: No hb deficits noted. No signs and/or symptoms reported regarding the musculoskeletal system. Assessment: 14:46 General: Appears in no apparent distress. Behavior is calm, cooperative. Pain: kb3 Complains of pain in left parietal area Pain does not radiate. Pain currently is 10 out of 10 on a pain scale. Quality of pain is described as throbbing. 15:37 Reassessment: Patient appears in no apparent distress at this time. Patient and/or hb family updated on plan of care and expected duration. Pain level reassessed. Patient is alert, oriented x 3, equal unlabored respirations, skin warm/dry/pink. Vital Signs: 14:46 BP 182 / 74; Pulse 71; Resp 18; Temp 98.1; Pulse Ox 98% ; Weight 72.57 kg; Height 5 ft. kb3 2 in. (157.48 cm); Pain 10/10; 15:45 BP 168 / 80; Pulse 70; Resp 16; Pulse Ox 100% on R/A; Pain 5/10; hb 16:45 BP 148 / 88; Pulse 82; Resp 15; Pulse Ox 100% on R/A; hb 14:46 Body Mass Index 29.26 (72.57 kg, 157.48 cm) kb3 [place] Coma Score: 14:46 Eye Response: spontaneous(4). Verbal Response: oriented(5). Motor Response: obeys kb3 commands(6). Total: 15. Trauma Score (Adult): 14:46 Eye Response: spontaneous(1); Verbal Response: oriented(1); Motor Response: obeys kb3 commands(2); Systolic BP: > 89 mm Hg(4); Respiratory Rate: 10 to 29 per min(4); [place] Score: 15; Trauma Score: 12 15:45 Eye Response: spontaneous(1); Verbal Response: oriented(1); Motor Response: obeys hb commands(2); Systolic BP: > 89 mm Hg(4); Respiratory Rate: 10 to 29 per min(4); [place] Score: 15; Trauma Score: 12 16:45 Eye Response: spontaneous(1); Verbal Response: oriented(1); Motor Response: obeys hb commands(2); Systolic BP: > 89 mm Hg(4); Respiratory Rate: 10 to 29 per min(4); [place] Score: 15; Trauma Score: 12 ED Course: 14:40 Patient arrived in ED. as 14:44 Paul Brewer PA is PHCP. m 14:44 Jose M Moncada DO is Attending Physician. jmm 14:46 Patient has correct armband on for positive identification. kb3 14:46 Patient maintains SpO2 saturation greater than 95% on room air. kb3 14:48 Triage completed. kb3 14:52 Rafia Almonte, RN is Primary Nurse. hb 14:57 Arm band placed on. hb 14:57 Thermoregulation: warm blanket given to patient. hb 15:07 CT Head C Spine In Process Unspecified. EDMS 17:01 No provider procedures requiring assistance completed. Patient did not have IV access hb during this emergency room visit. Administered Medications: 14:56 Drug: [place] (HYDROcodone-acetaminophen) 10 mg-325 mg 1 tabs Route: PO; hb Medication: 17:01 VIS not applicable for this client. hb Intake: 15:45 PO: 0ml; Total: 0ml. hb Output: 15:45 Urine: 0ml; Total: 0ml. hb Outcome: 16:49 Discharge ordered by MD. [facility] 17:01 Discharged to home ambulatory, with family. hb 17:01 Condition: stable 17:01 Discharge instructions given to patient, Instructed on discharge instructions, follow up and referral plans. medication usage, Demonstrated understanding of instructions, follow-up care, medications, Prescriptions given X 1. 17:01 Patient's length of stay was not longer than 2 hours. 17:01 Patient left the ED. hb Signatures: Dispatcher [employer] EDTX Paul Brewer PA PA jmm Martinez, Amelia as Rafia Almonte, RN RN Lashon Shaw, MARGIE RN kb3
--- NOTE | 2022-10-01 16:50 | EDPHYS ---
Physician Documentation [facility] Name: Shelly Yip Age: 66 yrs Sex: Female : 1955 Arrival Date: 10/01/2022 Time: 14:40 Bed 10 Private MD: ED Physician Jose M Moncada HPI: 10/01 14:52 This 66 yrs old Female presents to ER via Ambulatory with complaints of Fall jmm Injury, Laceration To Head. 14:52 Details of fall: The patient fell from an upright position, while walking. Onset: The jmm symptoms/episode began/occurred acutely, just prior to arrival. Is a 66-year-old female with a history of qyc-uprndlj-dlgawxkou diabetes mellitus, hypothyroidism the presents emerged department with complaints of a head injury which occurred after the patient fell backwards when attempting to walk inside tripping on the door frame. Denies loss consciousness but states having some neck pain.. Historical: - Allergies: 14:50 Bactrim; kb3 14:50 Zinc; kb3 - Home Meds: 14:50 Metformin [Active]; Levothyroxine [Active]; kb3 - PMHx: 14:50 NIDDM; Hypothyroidism; kb3 - PSHx: 14:50 None; kb3 - Immunization history: Last tetanus immunization: - up to date. - Social history:: Smoking status: Patient denies any tobacco usage or history of. ROS: 14:52 Constitutional: Negative for fever, chills, and weight loss, Cardiovascular: Negative jmm for chest pain, palpitations, and edema, Respiratory: Negative for shortness of breath, cough, wheezing, and pleuritic chest pain. 14:52 Neuro: Positive for headache. 14:52 All other systems are negative. Exam: 14:52 Constitutional: This is a well developed, well nourished patient who is awake, alert, jmm and in no acute distress. 14:52 Eyes: EOMI, no conjunctival erythema appreciated ENT: Moist Mucus Membranes Neck: Trachea midline, Supple Chest/axilla: Normal chest wall appearance and motion. Cardiovascular: Regular rate and rhythm. No edema appreciated Respiratory: Normal respirations, no respiratory distress appreciated Abdomen/GI: Non distended Back: Normal ROM Skin: General appearance color normal MS/ Extremity: Moves all extremities, no obvious deformities appreciated, no edema noted to the lower extremities Neuro: Awake and alert Psych: Behavior is normal, Mood is normal, Patient is cooperative and pleasant 14:52 Head/face: Abrasion noted to the posterior scalp with some mild bleeding. Vital Signs: 14:46 BP 182 / 74; Pulse 71; Resp 18; Temp 98.1; Pulse Ox 98% ; Weight 72.57 kg; Height 5 ft. kb3 2 in. (157.48 cm); Pain 10/10; 15:45 BP 168 / 80; Pulse 70; Resp 16; Pulse Ox 100% on R/A; Pain 5/10; hb 16:45 BP 148 / 88; Pulse 82; Resp 15; Pulse Ox 100% on R/A; hb 14:46 Body Mass Index 29.26 (72.57 kg, 157.48 cm) kb3 [place] Coma Score: 14:46 Eye Response: spontaneous(4). Verbal Response: oriented(5). Motor Response: obeys kb3 commands(6). Total: 15. Trauma Score (Adult): 14:46 Eye Response: spontaneous(1); Verbal Response: oriented(1); Motor Response: obeys kb3 commands(2); Systolic BP: > 89 mm Hg(4); Respiratory Rate: 10 to 29 per min(4); [place] Score: 15; Trauma Score: 12 15:45 Eye Response: spontaneous(1); Verbal Response: oriented(1); Motor Response: obeys hb commands(2); Systolic BP: > 89 mm Hg(4); Respiratory Rate: 10 to 29 per min(4); [place] Score: 15; Trauma Score: 12 16:45 Eye Response: spontaneous(1); Verbal Response: oriented(1); Motor Response: obeys hb commands(2); Systolic BP: > 89 mm Hg(4); Respiratory Rate: 10 to 29 per min(4); Jose Score: 15; Trauma Score: 12 MDM: 14:52 Patient medically screened. isac 16:48 Data reviewed: vital signs, nurses notes. Counseling: I had a detailed discussion with rema the patient and/or guardian regarding: the historical points, exam findings, and any diagnostic results supporting the discharge/admit diagnosis, radiology results, the need for outpatient follow up, to return to the emergency department if symptoms worsen or persist or if there are any questions or concerns that arise at home. 10/01 14:52 Order name: CT Head C Spine; Complete Time: 15:50 [facility] 10/01 15:52 Order name: Wound Care; Complete Time: 16:13 [facility] Administered Medications: 14:56 Drug: [place] (HYDROcodone-acetaminophen) 10 mg-325 mg 1 tabs Route: PO; Disposition: 18:03 Co-signature as Attending Physician, Jose M Moncada DO I was immediately available on-site ms3 in the Emergency Department for consultation in the care of the patient. Disposition Summary: 10/01/22 16:49 Discharge Ordered Location: Home [facility] Condition: Stable [facility] Diagnosis - Head Injury - Scalp Abrasion, Initial Unspecified Visit [facility] Followup: [facility] - With: Private Physician - When: 2 - 3 days - Reason: Recheck today's complaints, Continuance of care, Re-evaluation by your physician Discharge Instructions: - Discharge Summary Sheet [facility] - Head Injury, Adult [facility] Forms: - Medication Reconciliation Form [facility] - Thank You Letter [facility] - Antibiotic Education [facility] - Prescription Opioid Use [facility] Prescriptions: - orphenadrine citrate 100 mg Oral Tablet Sustained Release - take 1 tablet by ORAL route 2 times per day As needed; 20 tablet; Refills: 0, [facility] Product Selection Permitted Signatures: Dispatcher [employer] Paul Daniel PA PA jmm Baxter, Heather, RN RN Jose M Moncada DO DO ms3 Lashon Shaw RN RN kb3
[2022-10-01 17:11] VITALS: TEMP 98.1
[2022-10-01 17:12] VITALS: O2SAT 100
[2022-10-01 17:13] VITALS: BP 148/88
== END 2022-10-01 17:01 | disposition home or self-care (01) ==
LOC: ER 14:39
DX: S00.01XA Abrasion of scalp, initial encounter (principal); E03.9 Hypothyroidism, unspecified; E11.9 Type 2 diabetes mellitus without complications; Z88.1 Allergy status to other antibiotic agents; Z88.8 Allergy status to other drugs, medicaments and biological substances
CPT/HCPCS: 70450; 72125; 99284